=== PATIENT | male | born 1950 | race Caucasian/White ===

== ENCOUNTER 2024-02-26 08:44 | Day surgery (SDC) | payer OTHER ==
[2024-02-15 09:20] LABS: Absolute Eosinophils 0.1 K/uL (0-0.5); Absolute Lymphocytes (CBC) 1.1 K/uL (0.7-4.9); Absolute Monocytes 0.5 K/uL (0.1-1.3); Absolute Neutrophil 3.5 K/uL (1.8-8.0); Basophils % 0.9 % (0-1.3); Eosinophils % 2.7 % (0-4.4); Hematocrit 38.4 % (39.6-49.0); Lymphocytes % 20.7 % (15.3-44.8); MCH 31.6 pg (27.0-35.0); MCHC 33.8 g/dL (32.0-36.0); MCV 93.4 fL (80-100); MPV 7.5 fL (7.6-11.3); Monocytes % 8.9 % (3.3-12.3); Neutrophils % 66.8 % (41.7-73.7); Platelets 335 thou/uL (152-406); RBC Red Blood Cell Count 4.11 M/uL (4.33-5.43); Red Cell Distribution Width 13.4 % (12.1-15.2)
[2024-02-15 09:28] LABS: PT Prothrombin Time 11.2 SECONDS (9.5-12.5); Protime INR 1.02
[2024-02-15 09:41] LABS: Anion Gap 6.9 mEq/L (5.0-15.0); Potassium 3.9 mEq/L (3.5-5.1)
--- NOTE | 2024-02-15 09:57 | RAD REPORT ---
EXAM DESCRIPTION: RAD - Chest Pa And Lat (2 Views) - 02/15/2024 9:11 am CLINICAL HISTORY: pre op for surgery Chest pain. COMPARISON: CHEST SINGLE VIEW dated 10/19/2009 FINDINGS: The lungs are clear. The heart is normal in size. No displaced fractures. Small to moderat e hiatal hernia. IMPRESSION: No acute or concerning finding suspected. Hiatal hernia.
--- NOTE | 2024-02-15 11:49 | EKG ---
Test Date: 2024-02-15 Test Time: 08:59:20 Pulp Grinder Feeder: KERON MEASUREMENT RESULTS: Intervals: Rate: 67 ND: 164 QRSD: 104 QT: 380 QTc: 401 [place]: P: 65 ND: 164 QRS: 29 T: 53 INTERPRETIVE STATEMENTS: Normal sinus rhythm Incomplete right bundle branch block Borderline ECG Compared to ECG 10/19/2009 03:02:02 Incomplete right bundle-branch block now present Electronically Signed On 02-15-24 11:48:21 CDT by Jluis Greenfield
[2024-02-26] MEDS: Ringers Lactate 1,000 ML IV ONE (09:50)
[2024-02-26 10:09] LABS: Sqamous Epithelial None Seen /HPF (None Seen); Urine Bacteria None Seen /HPF (<20); Urine Bilirubin NEGATIVE (Negative); Urine Blood Negative (Negative); Urine Clarity Clear (Clear); Urine Color Light-Yellow (Yellow); Urine Culture Reflex Order NOT NEEDED; Urine Glucose NEGATIVE (Negative); Urine Ketones NEGATIVE (Negative); Urine Microscopic Reflex YN ORDER UMIC; Urine Mucus Slight /HPF (None Seen); Urine Nitrite NEGATIVE (Negative); Urine Protein NEGATIVE (Negative); Urine RBC <5 /HPF (None Seen); Urine Urobilinogen Normal (Normal); Urine WBC <5 /HPF (<5)
[2024-02-26] MEDS ORDERED: LIDOCAINE 1% MPF 5 ML VIAL ONE (10:32)
[2024-02-26] MEDS ORDERED: ONDANSETRON 4 MG/2 ML VIAL ONE (10:32)
[2024-02-26] MEDS ORDERED: propofoL 200 MG/20 ML VIAL IV ONE (10:32)
[2024-02-26] MEDS ORDERED: MIDAZOLAM HCL 2 MG/2 ML INJ ONE (10:33)
[2024-02-26] MEDS ORDERED: FENTANYL CITR 100 MCG/2 ML ONE (10:33)
[2024-02-26] MEDS: CEFAZOLIN SODIUM 1 GM/VIAL ONE (10:37)
[2024-02-26] MEDS ORDERED: GLYCOPYRROLATE 0.2 MG/ML SYR ONE (11:07)
--- NOTE | 2024-02-26 12:27 | RAD REPORT ---
EXAM DESCRIPTION: RAD - Urethrocystogrphy Retrograde - 02/26/2024 12:08 pm CLINICAL HISTORY: ICD N 20.0 FINDINGS: A 20 fluoroscopic spot images obtained. Fluoroscopy time 0.4 minutes The right ureter was cannulated and contrast administered. Subsequently an ureteral stent was placed. Examination was performed by Dr Saha
[2024-02-26 12:40] VITALS: O2SAT 99
[2024-02-26] MEDS ORDERED: PHENAZOPYRIDINE 100MG TAB PO ONE (13:06)
[2024-02-26] MEDS ORDERED: HYDROCODONE/APAP 5/325 MG TAB ONE (13:06)
[2024-02-26] MEDS: PHENAZOPYRIDINE 100MG TAB PO ONE (13:11)
[2024-02-26] MEDS: HYDROCODONE/APAP 5/325 MG TAB PO PRN (13:11)
[2024-02-26 13:23] VITALS: BP 126/81; TEMP 97.7
--- NOTE | 2024-02-26 23:09 | OP ---
Surgeon: PENNY BRYSON Preoperative Diagnoses: 1.Right nephroureterolithiasis. 2.Left nephrolithiasis. Postoperative Diagnoses: 1.Right nephroureterolithiasis. 2.Left nephrolithiasis. 3.Subcoronal hypospadias. 4.Meatal stenosis. 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 Principal Procedures: 1.Meatal dilation using sounds. 2.Cystoscopy. 3.Right retrograde pyelography. 4.Right ureteroscopy with laser lithotripsy and stone basketing. 5.Right ureteral dilation. 6.Right 7-Mauritian ureteral stent placement. Indication For Procedure: Mr. Chung presented to the Urology [facility] with pain associated with a proximal ureteral calculus. He failed to pass the stone over the course of the last few weeks of obs ervation, and while his pain did resolve, no evidence of stone passage occurred. As a result, he pre sents for definitive management of his ureteral calculi as well as potentially the renal calculi. Procedure In Detail: The patient was consented in the preoperative holding area before being transfe rred to the operative suite where general anesthesia was induced. He was given Ancef 1 g IV antimicr obial prophylaxis, and pneumo boots were provided for DVT prophylaxis. He was placed in the lithotom y position, padded and secured to the table appropriately, and his genitalia was prepped with Hib[place] ns before being draped in standard fashion. The case was begun attempting to use the 22-Mauritian rigid cystoscope to traverse his urethra, but there was stenosis of the subcoronal hypospadiac meatus. As a result, urethral sounds were required to dilate the meatus from 18-Mauritian to 24-Mauritian with relati ve ease. I was then able to pass the cystoscope via the meatus and via the urethra into his bladder with relative ease. Upon entry into the bladder, I decompressed it of fluid and urine and surveyed i t briefly. No papillary mucosal lesions were noted, but there was a small stone fragment posteriorly dependent. The bladder was moderately trabeculated. I thus identified the right ureteral orifice, which I cannulated using the tip of a Sensor wire and the 5-Mauritian ureteral access catheter. I then performed a right retrograde pyelography: Using a 70:30 mixture of Omnipaque and saline, contrast was injected via the lumen of the 5-Mauritian ur eteral access catheter and did propagate up the distal and beyond a point of irregularity and obstruc tion in the mid distal ureter before entering the proximal ureter and the renal pelvis and calices, w here there was noted to be mild to moderate pelvocaliectasis. I then advanced the sensor wire via th e 5-Mauritian ureteral access catheter and ultimately coiled it within the upper pole of the kidney. Le aving the wire in place, I removed the 5-Mauritian ureteral access catheter and I passed a dual-lumen ca theter over the wire into the distal ureter until it reached a point of obstruction in the same spot, where there was a transition in the ureter observed on the retrograde pyelogram study in the mid dis cesar ureter at about the body of S1. As a result, I again injected contrast to define this and there was a degree of narrowing and filling defect in that area. Presuming this may have been a radiolucen t calculus, I then passed a Bentson guidewire via the second lumen of the dual-lumen catheter coiling it alongside the safety wire in the upper pole of the kidney and removed the dual-lumen catheter. I then utilized that Bentson guidewire to pass the semi-rigid ureteroscope over the wire into the dist al ureter. Right semi-rigid ureteroscopy: I navigated the ureteroscope using pressurized saline over the Bentso n guidewire up the distal ureter and at about the body of S1 as had previously been observed, I encou ntered a point of stricture narrowing that was somewhat dense. With gentle pressure and the wire in place, using those 2 wires as a bit of a rail road track, I was able to navigate beyond the point of obstruction and into the mid distal ureter where I encountered the first calculus. It had a very shad d appearance consistent with a calcium oxalate monohydrate stone. I thus utilized a 272 nm laser fib er at a power setting of 1 joule and 10 hertz that was eventually increased to 15 hertz to fragment t hat stone. I initially utilized a basket to attempt to grasp the partially fragmented stone pieces a nd deliver them out of the ureter, but they got hung up at the level of the stricture disease at the body of S1. As a result, I had to fragment the stone pieces even further until they were about the s ize of the tip of the laser fiber or smaller. I then navigated the scope beyond this initial burden of stone that had been fragmented into the proximal ureter where I encountered a second ureteral calc ulus. I similarly utilized the laser at similar power settings to fragment that stone into dust arou nd the size of the tip of the laser fiber. At this point, since semi-rigid ureteroscopy had been per formed, I then removed the semi-rigid ureteroscope after placing a Bentson guidewire under direct vis ion into the collecting system. I then again attempted to pass the dual-lumen catheter over the Bent son guidewire, but it again got hung up at the level of the previously observed stricture at the body of S1. Attempts to pass the flexible ureteroscope beyond this point of obstruction were similarly t hwarted. As a result, leaving the Bentson guidewire in place with a Sensor wire as a safety wire, I utilized a n 8/10 dilator to dilate the area of stricture disease. Once I was successfully able to pass the dil ator all the way into the proximal ureter just distal to the UPJ, I then utilized the dual-lumen cath eter with a maximum diameter of 12-Mauritian to pass beyond the point of stricture all the way into the proximal ureter. At this point, with the stricture dilated, I then back-loaded the cystoscope over t he indwelling Sensor wire and passed a 7-Mauritian x 26 cm double-J ureteral stent with a coil observed fluoroscopically in his renal pelvis and 1 cystoscopically formed in his bladder. I then decompresse d his bladder of fluid, urine, and a few small blood clots. The scope was then removed, he was taken out of the lithotomy position, awakened from general anesthesia, and then he was transferred to the recovery room in good condition after being transferred to a stretcher. Complications: None. Discharge Disposition: Given the findings of a mid distal ureteral stricture at the body of S1 on th e right, likely from the prior stone impaction in that location, that was dilated today and I will le ave the 7-Mauritian stent over the course of the next few weeks to hopefully stabilize that stricture di sease and prevent future recurrence. He would certainly benefit from repeat operative ureteroscopy w ith laser lithotripsy of the more than 5 or 6 additional small to moderate-sized calculi present with in his right kidney. Subsequent management of the left side may be considered via ESWL in the absenc e of obstruction. Additionally, given his recurrent stone formation, he will require definitive metabolic stone profile assessment down the line. HOMA/SHABANA Voice ID: [id number] Report ID: [id number]
== END 2024-02-26 14:25 | disposition home or self-care (01) ==
LOC: OR 08:44
PROVIDERS: ATTEND Urology
PROC: 0T768DZ Dilation of Right Ureter with Intraluminal Device, Via Natural or Artificial Opening Endoscopic (ICD-10-PCS; 2024-02-26)
PROC: 0TC68ZZ Extirpation of Matter from Right Ureter, Via Natural or Artificial Opening Endoscopic (ICD-10-PCS; principal; 2024-02-26 10:15)
DX: N20.2 Calculus of kidney with calculus of ureter (principal); R10.9 Unspecified abdominal pain; N40.1 Benign prostatic hyperplasia with lower urinary tract symptoms; N13.8 Other obstructive and reflux uropathy; Q54.8 Other hypospadias; N13.5 Crossing vessel and stricture of ureter without hydronephrosis; N35.911 Unspecified urethral stricture, male, meatal
CPT/HCPCS: 93005; 85025; 81001; 87086; 80048; 36415; 85610; 71046; 74450; 51610; 52356; J2704; J2001; J3010; J2405; J7120; J0690; 87088; J2250

== ENCOUNTER 2024-03-08 04:29 | Emergency (ER) | payer OTHER ==
--- OUTSIDE RECORDS SUMMARY | 2024-03-08 04:32 | XMS REPORT | Continuity of Care Document ---
Author Name Unknown Address [address] [place] [address] [facility] thconnect Address [address] [place] [address] Care Team Providers Care Energy Risk Management Analyst Name Role Phone Carissa Kim Attending Clinician Unavailable Raju_P Attending Clinician Unavailable Raju_P Admitting Clinician Unavailable Payers Payer Name Policy Type Policy Number Effective Date Expirati on Date Source [id number] [id number] Problems Condition Name Condition Details Condition Category Status Onset Date Resolution Date Last Treatment Date Treating Clinician Comments Source [id number] Encounter for prostate cancer screening Problem [facility] [id number] Other obstructiv e and reflux uropathy Problem [facility] [id number] Right flank pain Problem [facility] [id number] Benign prostatic hyperplasi a with lower urinary tract symptoms Problem [facility] [id number] Ureterolit hiasis Problem [facility] [id number] Sciatica of right side Problem [facility] [id number] Mixed hyperlipid emia [facility] Hypercalce stefanie Hypercalce stefanie Problem [facility] [id number] Spondylosi s of lumbosacra l region, unspecifie d spinal osteoarthr itis complicati on status Problem [facility] [id number] Gastroesop hageal reflux disease, esophagiti s presence not specified Problem [facility] [id number] Hearing aid worn Problem [facility] [id number] 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 Problem [facility] [id number] Acute cystitis with hematuria Problem [facility] [id number] Hearing loss, unspecifie d hearing loss type, unspecifie d laterality Problem [facility] [id number] Benign prostatic hyperplasi a without lower urinary tract symptoms Problem [facility] Lesion of liver Liver lesion Problem [facility] Kidney stone Bilateral nephrolith iasis Problem [facility] Hiatal hernia Hiatal hernia Problem [facility] Allergies, Adverse Reactions, Alerts Allergy Name Allergy Type Status Severity Reaction(s) Onset Date Inactive Date Treating Clinician Comments Source 0 Drug allergy Active Myalgia [facility] Social History Social Habit Start Date Stop Date Quantity Comments Source History of Tobacco Use [facility] Sex Assigned At [facility] Smoking Status Start Date Stop Date Source Never Smoker [facility] Medications Ordered Medication Name Filled Medication Name Start Date Stop Date Current Medication? Ordering Clinician Indication Dosage Frequency Signature (SIG) Comments Components Source Flomax 0.4 MG Flomax 0.4 MG 4-0 02-12 00:00: 00 No 1{capsu le_at_b edtime} QD Flomax 0.4 MG Flomax 0.4 MG Flomax 0.4 MG 4-0 02-12 00:00: 00 No 1{capsu le_at_b edtime} QD Flomax 0.4 MG Amoxicillin -Pot Clavulanate 875-125 MG Amoxicillin -Pot Clavulanate 875-125 MG 4-0 02-07 00:00: 00 No 1{table t} BID Amoxicilli n-Pot Clavulanat e 875-125 MG Amoxicillin -Pot Clavulanate 875-125 MG Amoxicillin -Pot Clavulanate 875-125 MG 4-0 02-07 00:00: 00 No 1{table t} BID Amoxicilli n-Pot Clavulanat e 875-125 MG Amoxicillin -Pot Clavulanate 875-125 MG Amoxicillin -Pot Clavulanate 875-125 MG 4-0 322 00:00: 00 No 1{table t} BID Amoxicilli n-Pot Clavulanat e 875-125 MG Tamsulosin HCl 0.4 MG Tamsulosin HCl 0.4 MG 4-0 314 00:00: 00 No 1{capsu le} QD Tamsulosin HCl 0.4 MG Tamsulosin HCl 0.4 MG Tamsulosin HCl 0.4 MG 4-0 14 00:00: 00 No 1{capsu le} QD Tamsulosin HCl 0.4 MG Ciprofloxac in HCl 500 MG Ciprofloxac in HCl 500 MG 4-0 314 00:00: 00 No 1{table t} BID Ciprofloxa liss HCl 500 MG Tamsulosin HCl 0.4 MG Tamsulosin HCl 0.4 MG 4-0 14 00:00: 00 No 1{capsu le} QD Tamsulosin HCl 0.4 MG Ciprofloxac in HCl 500 MG Ciprofloxac in HCl 500 MG 4-0 314 00:00: 00 No 1{table t} BID Ciprofloxa liss HCl 500 MG Tamsulosin HCl 0.4 MG Tamsulosin HCl 0.4 MG 4-0 14 00:00: 00 No 1{capsu le} QD Tamsulosin HCl 0.4 MG Ciprofloxac in HCl 500 MG Ciprofloxac in HCl 500 MG 4-0 14 00:00: 00 No 1{table t} BID Ciprofloxa liss HCl 500 MG Tamsulosin HCl 0.4 MG Tamsulosin HCl 0.4 MG 4-0 14 00:00: 00 No 1{capsu le} QD Tamsulosin HCl 0.4 MG Ciprofloxac in HCl 500 MG Ciprofloxac in HCl 500 MG 4-0 14 00:00: 00 No 1{table t} BID Ciprofloxa liss HCl 500 MG Tamsulosin HCl 0.4 MG Tamsulosin HCl 0.4 MG 4-0 3-14 00:00: 00 No 1{vincenzou le} QD Tamsulosin HCl 0.4 MG Multi For Him 50+ - Multi For Him 50+ - No Multi For Him 50+ - Multi For Him 50+ - Multi For Him 50+ - No Multi For Him 50+ - Omeprazole 20 MG Omeprazole 20 MG No QD Omeprazole 20 MG Saw [place] Saw [place] No Saw [place] Multi For Him 50+ - Multi For Him 50+ - No Multi For Him 50+ - Omeprazole 20 MG Omeprazole 20 MG No QD Omeprazole 20 MG Probiotic Probiotic No Probiotic Omeprazole 20 MG Omeprazole 20 MG No QD Omeprazole 20 MG Multi For Him 50+ - Multi For Him 50+ - No Multi For Him 50+ - Probiotic Probiotic No Probiotic Omeprazole 20 MG Omeprazole 20 MG No QD Omeprazole 20 MG Multi For Him 50+ - Multi For Him 50+ - No Multi For Him 50+ - Probiotic Probiotic No Probiotic Omeprazole 20 MG Omeprazole 20 MG No QD Omeprazole 20 MG Multi For Him 50+ - Multi For Him 50+ - No Multi For Him 50+ - Probiotic Probiotic No Probiotic Probiotic Probiotic No Probiotic Omeprazole 20 MG Omeprazole 20 MG No QD Omeprazole 20 MG Multi For Him 50+ - Multi For Him 50+ - No Multi For Him 50+ - Probiotic Probiotic No Probiotic Omeprazole 20 MG Omeprazole 20 MG No QD Omeprazole 20 MG Multi For Him 50+ - Multi For Him 50+ - No Multi For Him 50+ - Probiotic Probiotic No Probiotic Omeprazole 20 MG Omeprazole 20 MG No QD Omeprazole 20 MG Multi For Him 50+ - Multi For Him 50+ - No Multi For Him 50+ - Probiotic Probiotic No Probiotic Omeprazole 20 MG Omeprazole 20 MG No QD Omeprazole 20 MG Vital Signs Vital Name Observation Time Observation Value Comments S ource height 2024-02-13 13:30:00 62 [in_i] Commo n [facility] weight 2024-02-13 13:30:00 138.6 [lb_av] Co mmon [facility] temperature 2024-02-13 13:30:00 97.6 [degF] Com mon [facility] bmi 2024-02-13 13:30:00 25.35 kg/m2 Comm on [facility] oximetry 2024-02-13 13:30:00 99 % Commo n [facility] respiratory rate 2024-02-13 13:30:00 18 /min Common [facility] blood pressure systolic 2024-02-13 13:30:00 120 mm[Hg] [facility] pressure diastolic 2024-02-13 13:30:00 68 mm[Hg] Common [facility] bmi 2024-01-31 15:00:00 24.91 kg/m2 Comm on [facility] oximetry 2024-01-31 15:00:00 95 % Commo n [facility] respiratory rate 2024-01-31 15:00:00 15 /min [facility] blood pressure systolic 2024-01-31 15:00:00 129 mm[Hg] [facility] blood pressure diastolic 2024-01-31 15:00:00 74 mm[Hg] [facility] height 2024-01-31 15:00:00 62 [in_i] Commo n [facility] weight 2024-01-31 15:00:00 136.2 [lb_av] Co [facility] temperature 2024-01-31 15:00:00 98.2 [degF] Com [facility] height 2023-03-21 10:20:00 62 [in_i] Commo n [facility] weight 2023-03-21 10:20:00 139.6 [lb_av] Co on [facility] temperature 2023-03-21 10:20:00 97.4 [degF] Com [facility] bmi 2023-03-21 10:20:00 25.53 kg/m2 Comm on [facility] oximetry 2023-03-21 10:20:00 95 % Commo n [facility] respiratory rate 2023-03-21 10:20:00 16 /min Common [facility] blood pressure systolic 2023-03-21 10:20:00 113 mm[Hg] [facility] blood pressure diastolic 2023-03-21 10:20:00 74 mm[Hg[facility] Procedures Procedure Date / Time Performed Performing Clinicia n Source PVR 2024-02-13 00:00:00 [facility]irit [facility] Encounters Start Date/Time End Date/Time Encounter Type Admission Type Attending Clinicians Care Facility Care Department Encounter ID Source 2023-03-21 10:03:02 Outpatient Carissa Kim [facility] ST[facility] [id number] [facility] 2024-02-19 00:00:00 2024-02-19 00:00:00 (TEL) [facility] [id number] [facility] 2024-02-13 00:00:00 2024-02-13 00:00:00 OFFICE VISIT NEW PT LEVEL 4 [facility] [id number] [facility] 2024-02-07 00:00:00 2024-02-07 00:00:00 (TEL) [facility] [id number] [facility] 2024-02-05 00:00:00 2024-02-05 00:00:00 (TEL) [facility]C [facility] [id number] [facility] 2024-01-31 00:00:00 2024-01-31 00:00:00 OFFICE VISIT ESTAB PT LEVEL 3 [facility] [id number] [facility] 2023-04-24 00:00:00 2023-04-24 00:00:00 (TEL) [facility]C [facility] [id number] [facility] 2023-04-09 00:00:00 2023-04-09 00:00:00 (TEL) [facility]C [facility] [id number] [facility] 2023-03-21 00:00:00 2023-03-21 00:00:00 SUB ANNUAL [facility] VISIT [facility] [id number] [facility] 2020-09-22 12:00:00 2020-09-22 12:00:00 [id number] [facility] 2020-06-25 03:33:00 2020-06-25 03:33:00 Outpatient Raju_P MMG MMG [id number] [facility] Results Test Description Test Time Test Comments Results Result Co mments Source LIPID [id number] 00:00:00* Test Item Value Reference Range Interpretation Comme nts CALC LDL CHOL (test code = 81855-0) 159 MG/DL See_Comment H [Automated messa ge] The system which generated this result transmitted reference range: <100 MG/DL. The reference range was not used to interpret this result as normal/abnormal. CHOLESTEROL (test code = 2093-3) 236 MG/DL See_Comment H [Automated messa ge] The system which generated this result transmitted reference range: <200 MG/DL. The reference range was not used to interpret this result as normal/abnormal. HDL CHOLESTEROL (test code = 2085-9) 58 MG/DL See_Comment [Automated messa ge] The system which generated this result transmitted reference range: >39 MG/DL. The reference range was not used to interpret this result as normal/abnormal. RISK RATIO LDL/HDL (test code = 84302-4) 2.74 RATIO See_Comment [Automated message] The system which generated this result transmitted reference range: <3.55 RATIO. The reference range was not used to interpret this result as normal/abnormal. TRIGLYCERIDES (test code = 2571-8) 87 MG/DL See_Comment [Automated messa ge] The system which generated this result transmitted reference range: <150 MG/DL. The reference range was not used to interpret this result as normal/abnormal. COMPREHENSIVE METABOLIC [id number] 00:00:00* Test Item Value Reference Range Interpretation Comme nts ALBUMIN (test code = 1751-7) 4.6 G/DL See_Comment [Automated messa ge] The system which generated this result transmitted reference range: 3.5-5.2 G/DL. The reference range was not used to interpret this result as normal/abnormal. ALKALINE PHOSPHATASE (test code = 6768-6) 103 U/L See_Comment [Automated message] The system which generated this result transmitted reference range: 40-125 U/L. The reference range was not used to interpret this result as normal/abnormal. BILIRUBIN, TOTAL (test code = 1975-2) 0.7 MG/DL See_Comment [Automated message] The system which generated this result transmitted reference range: <=1.2 MG/DL. The reference range was not used to interpret this result as normal/abnormal. BUN (test code = 3094-0) 17 MG/DL See_Comment [Automated messa ge] The system which generated this result transmitted reference range: 8-23 MG/DL. The reference range was not used to interpret this result as normal/abnormal. CALCIUM (test code = 69893-3) 11.6 MG/DL See_Comment H [Automated messa ge] The system which generated this result transmitted reference range: 8.5-10.5 MG/DL. The reference range was not used to interpret this result as normal/abnormal. CALC A/G RATIO (test code = 1759-0) 2.3 RATIO See_Comment [Automated messa ge] The system which generated this result transmitted reference range: 1.0-2.6 RATIO. The reference range was not used to interpret this result as normal/abnormal. CALC BUN/CREAT (test code = 3097-3) 18 RATIO See_Comment [Automated messa ge] The system which generated this result transmitted reference range: 6-28 RATIO. The reference range was not used to interpret this result as normal/abnormal. CALC GLOBULIN (test code = 99388-8) 2.0 G/DL See_Comment [Automated messa ge] The system which generated this result transmitted reference range: 1.9-3.7 G/DL. The reference range was not used to interpret this result as normal/abnormal. CARBON DIOXIDE (test code = 1963-8) 27 MEQ/L See_Comment [Automated messa ge] The system which generated this result transmitted reference range: 19-31 MEQ/L. The reference range was not used to interpret this result as normal/abnormal. CHLORIDE (test code = 2075-0) 105 MEQ/L See_Comment [Automated messa ge] The system which generated this result transmitted reference range: 95-107 MEQ/L. The reference range was not used to interpret this result as normal/abnormal. CREATININE (test code = 2160-0) 0.94 MG/DL See_Comment [Automated messa ge] The system which generated this result transmitted reference range: 0.80-1.40 MG/DL. The reference range was not used to interpret this result as normal/abnormal. eGFR (2020 CKD-EPI) (test code = 77599-7) 87 ML/MIN/1.73 See_Comment [Automated messa ge] The system which generated this result transmitted reference range: >60 ML/MIN/1.73. The reference range was not used to interpret this result as normal/abnormal. GLUCOSE (test code = 1558-6) 94 MG/DL See_Comment [Automated messa ge] The system which generated this result transmitted reference range: 70-99 MG/DL. The reference range was not used to interpret this result as normal/abnormal. POTASSIUM (test code = 2823-3) 4.7 MEQ/L See_Comment [Automated messa ge] The system which generated this result transmitted reference range: 3.5-5.4 MEQ/L. The reference range was not used to interpret this result as normal/abnormal. PROTEIN, TOTAL (test code = 2885-2) 6.6 G/DL See_Comment [Automated messa ge] The system which generated this result transmitted reference range: 6.1-8.3 G/DL. The reference range was not used to interpret this result as normal/abnormal. AST (test code = 1920-8) 34 U/L See_Comment [Automated messa ge] The system which generated this result transmitted reference range: 9-50 U/L. The reference range was not used to interpret this result as normal/abnormal. ALT (test code = 1742-6) 38 U/L See_Comment [Automated messa ge] The system which generated this result transmitted reference range: 5-50 U/L. The reference range was not used to interpret this result as normal/abnormal. SODIUM (test code = 2951-2) 144 MEQ/L See_Comment [Automated messa ge] The system which generated this result transmitted reference range: 133-146 MEQ/L. The reference range was not used to interpret this result as normal/abnormal.
--- NOTE | 2024-03-08 05:20 | EDPHYS ---
Physician Documentation [facility] Name: Zion Chung Age: 73 yrs Sex: Male : 1950 Arrival Date: 03/08/2024 Time: 04:29 Bed 18 Private MD: ED Physician Yohan Méndez HPI: 03/08 04:55 This 73 yrs old Male presents to ER via Unassigned with complaints of Post ec2 Surgical Pain, Urinary Retention. 04:55 Patient arrives today for concern for urinary retention. Patient has an indwelling ec2 Jose catheter that was removed approximately 24 hours ago. Patient states that he had issues with urinary retention. Patient reports some suprapubic discomfort as he has not been able to urinate. No fevers or chills, no nausea or vomiting. Follows with Dr. Saha, is on ciprofloxacin as well as Flomax.. Historical: - Allergies: 05:10 No Known Allergies; bm8 - Home Meds: 05:10 omeprazole Oral [Active]; Flomax 0.4 mg Oral capsule 1 cap daily [Active]; Cipro Oral bm8 [Active]; - PSHx: 05:10 Unable to Obtain; bm8 - Immunization history:: Adult Immunizations up to date. - Infectious Disease History:: Denies. - Social history:: Smoking status: Patient denies any tobacco usage or history of. ROS: 04:55 Constitutional: as per hpi ec2 Exam: 04:55 Constitutional: GEN: NAD Head: atraumatic Eyes: EOMI Ears: External ears are ec2 normal. CV: regular rate LUNGS: no respiratory distress ABD: non-distended, soft, minimally tender in the suprapubic region, no guarding, not rigid. SKIN: no evidence of rashes MSK: no evidence of trauma NEURO: moves all extremities equally Vital Signs: 04:29 BP 134 / 80; Pulse 102; Resp 19; Temp 99.3; Pulse Ox 96% ; Weight 68.04 kg; Height 5 bm8 ft. 6 in. ; Pain 8/10; 05:16 BP 118 / 69; Pulse 95; Resp 20; Temp 99.3; Pulse Ox 99% ; Pain 0/10; bm8 05:19 Pulse 98; ec2 04:29 Body Mass Index 24.21 (68.04 kg, 167.64 cm) bm8 04:29 Pain Scale: Adult bm8 05:16 Pain Scale: Adult bm8 [place] Coma Score: 05:13 Eye Response: spontaneous(4). Motor Response: obeys commands(6). Verbal Response: bm8 oriented(5). Total: 15. MDM: 04:45 Patient medically screened. ec2 04:55 Data reviewed: vital signs. ED course: Patient arrives today for evaluation of ec2 inability to urinate. Examination remarkable for well-appearing nontoxic dividual is otherwise in no acute distress with a reassuring examination. Will replace the patient's Jose catheter to help with this is retention. Ultimately will discharge him with this. Suspect this is likely secondary to the recent Jose catheter removal. Additionally considered other process such as UTI however patient is currently in antibiotics.. 05:18 ED course: Patient already on ciprofloxacin however states this is his last day, will ec2 add on additional several day course given the reinstrumentation. Will have patient follow-up with Dr. Saha. Return precautions given.. 03/08 05:32 Order name: Urine Culture ec2 03/08 04:55 Order name: Jose Leg Bag; Complete Time: 05:16 ec2 Administered Medications: No medications were administered Disposition Summary: 03/08/24 05:19 Discharge Ordered Notes: Location: Home ec2 Condition: Stable ec2 Diagnosis - Retention of urine, unspecified ec2 Followup: ec2 - With: Chaitanya Saha MD - When: - Reason: Recheck today's complaints Discharge Instructions: - Discharge Summary Sheet ec2 - Acute Urinary Retention, Male ec2 Forms: - Medication Reconciliation Form ec2 - Thank You Letter ec2 - Antibiotic Education ec2 - Prescription Opioid Use ec2 - Patient Portal Instructions ec2 - Leadership Thank You Letter ec2 Prescriptions: - Cipro 500 mg Oral Tablet - take 1 tablet ORAL route every 12 hours for 7 days; 14 tablet; Refills: 0, ec2 Product Selection Permitted Signatures: Dispatcher [employer] EDYohan Matta MD MD ec2 Ramiro Mendez RN RN bm8 Corrections: (The following items were deleted from the chart) 05:02 05:02 Patient medically screened. ec2 ec2 05:33 05:33 Urine Culture+BA.LAB.BRZ ordered. EDMS EDMS
--- NOTE | 2024-03-08 05:20 | ER ---
Nurse's Notes [facility] Name: Zion Chung Age: 73 yrs Sex: Male : 1950 Arrival Date: 03/08/2024 Time: 04:29 Bed 18 Private MD: Diagnosis: Retention of urine, unspecified Presentation: 03/08 04:29 Chief complaint: Patient states: I have been unable to pee since 829 morning. I bm8 just had it taken out this morning and have not been able to urinate since. Coronavirus screen: At this time, the client does not indicate any symptoms associated with coronavirus-19. Ebola Screen: Patient negative for fever greater than or equal to 101.5 degrees Fahrenheit, and additional compatible Ebola Virus Disease symptoms Patient denies exposure to infectious person. Patient denies travel to an Ebola-affected area in the 21 days before illness onset. No symptoms or risks identified at this time. 04:29 Method Of Arrival: Ambulatory bm8 04:29 Initial Sepsis Screen: Does the patient meet any 2 criteria? No. Patient's initial bm8 sepsis screen is negative. Does the patient have a suspected source of infection? No. Patient's initial sepsis screen is negative. Risk Assessment: Do you want to hurt yourself or someone else? Patient reports no desire to harm self or others. Onset of symptoms was March 07, 2024 at 08:30. 04:29 Acuity: [place] 3 bm8 Triage Assessment: 04:29 General: Appears distressed, uncomfortable, Behavior is calm, cooperative, appropriate bm8 for age. Pain: Complains of pain in suprapubic area Pain currently is 8 out of 10 on a pain scale. Quality of pain is described as aching. EENT: No deficits noted. No signs and/or symptoms were reported regarding the EENT system. Neuro: Level of Consciousness is awake, alert, obeys commands, Oriented to person, place, time, situation, Appropriate for age. Cardiovascular: Capillary refill < 3 seconds Patient's skin is warm and dry. Respiratory: Airway is patent Respiratory effort is even, unlabored, Respiratory pattern is regular, symmetrical. 04:29 GI: No deficits noted. No signs and/or symptoms were reported involving the bm8 gastrointestinal system. : Urine is cloudy, Reports inability to void, since 829 morning. Historical: - Allergies: 05:10 No Known Allergies; bm8 - Home Meds: 05:10 omeprazole Oral [Active]; Flomax 0.4 mg Oral capsule 1 cap daily [Active]; Cipro Oral bm8 [Active]; - PSHx: 05:10 Unable to Obtain; bm8 - Immunization history:: Adult Immunizations up to date. - Infectious Disease History:: Denies. - Social history:: Smoking status: Patient denies any tobacco usage or history of. Screenin:13 [facility] ED Fall Risk Assessment (Adult) History of falling in the last 3 months, bm8 including since admission No falls in past 3 months (0 pts) Confusion or Disorientation No (0 pts) Intoxicated or Sedated No (0 pts) Impaired Gait No (0 pts) Mobility Assist Device Used No (0 pt) Altered Elimination Yes (1 pt) Score/Fall Risk Level 0 - 2 = Low Risk Oriented to surroundings, Maintained a safe environment, Educated pt \T\ family on fall prevention, incl call for assistance when getting out of bed. Abuse screen: Denies threats or abuse. Nutritional screening: No deficits noted. Tuberculosis screening: No symptoms or risk factors identified. Assessment: 05:13 Reassessment: see triage assessment. bm8 05:16 Reassessment: Patient appears in no apparent distress at this time. Patient and/or bm8 family updated on plan of care and expected duration. Pain level reassessed. Patient is alert, oriented x 3, equal unlabored respirations, skin warm/dry/pink. Patient denies pain at this time. Patient states feeling better. Patient states symptoms have improved. : Reports after cath placement pt feels much better and denies pain. Vital Signs: 04:29 BP 134 / 80; Pulse 102; Resp 19; Temp 99.3; Pulse Ox 96% ; Weight 68.04 kg; Height 5 bm8 ft. 6 in. ; Pain 8/10; 05:16 BP 118 / 69; Pulse 95; Resp 20; Temp 99.3; Pulse Ox 99% ; Pain 0/10; bm8 05:19 Pulse 98; ec2 04:29 Body Mass Index 24.21 (68.04 kg, 167.64 cm) bm8 04:29 Pain Scale: Adult bm8 05:16 Pain Scale: Adult bm8 [place] Coma Score: 05:13 Eye Response: spontaneous(4). Motor Response: obeys commands(6). Verbal Response: bm8 oriented(5). Total: 15. ED Course: 04:29 Arm band placed on right wrist. bm8 04:31 Patient arrived in ED. [id number] 04:34 Yohna Méndez MD is Attending Physician. ec2 05:07 Ramiro Mendez RN is Primary Nurse. bm8 05:10 Triage completed. bm8 05:13 Patient has correct armband on for positive identification. Placed in gown. Bed in low bm8 position. Call light in reach. Side rails up X 1. Adult w/ patient. Pulse ox on. NIBP on. Door closed. Noise minimized. Verbal reassurance given. 05:13 No provider procedures requiring assistance completed. Jose cath inserted, using bm8 sterile technique, 18 Fr., by wi, balloon inflated, to gravity drainage, urine specimen collected. Patient tolerated well. 05:16 Provided Education on: post ER care. bm8 05:19 Chaitanya Saha MD is Referral Physician. ec2 05:38 Yohan Méndez MD is Attending Physician. bm8 05:38 Patient did not have IV access during this emergency room visit. bm8 Administered Medications: No medications were administered Medication: 05:13 VIS not applicable for this client. bm8 Output: 05:16 Urine: 1000ml (Jose); Total: 1000ml. bm8 Outcome: 05:19 Discharge ordered by . ec2 05:37 Discharged to home ambulatory, bm8 05:37 Condition: stable 05:37 Discharge instructions given to patient, family, Instructed on discharge instructions, follow up and referral plans. medication usage, safety practices, Demonstrated understanding of instructions, follow-up care, medications, Prescriptions given X 1, 05:38 Patient left the ED. bm8 Addendum: 03/09/2024 14:35 Addendum: Culture Results: Positive blood culture. gram negative rods in aerobic i w bottles Bacteria is resistant to, has intermediate sensitivity, or is not tested against prescribed antibiotics. Report given to HENNY for further evaluation and then to burrito maker for follow up with patient. Signatures: Antoinette Bird RN RN iw Jeffries, Jennifer jj6 Yohan Méndez MD MD 2 Mendez, Ramiro, RN RN bm8
[2024-03-08 05:50] VITALS: BP 118/69; TEMP 99.3; O2SAT 99
== END 2024-03-08 05:38 | disposition home or self-care (01) ==
LOC: ER 04:29
DX: R33.9 Retention of urine, unspecified (principal)
CPT/HCPCS: 51702; 87077; 87086; 87088; 87186; 99284

== ENCOUNTER 2024-03-08 20:02 | Emergency (ER) | payer OTHER ==
--- OUTSIDE RECORDS SUMMARY | 2024-03-08 20:04 | XMS REPORT | Continuity of Care Document ---
Author Name Unknown Address [address] [place] [address] [facility] thconnect Address [address] [place] [address] Care Team Providers Care Beer Merchant Name Role Phone Carissa Kim Attending Clinician Unavailable Raju_P Attending Clinician Unavailable Raju_P Admitting Clinician Unavailable Payers Payer Name Policy Type Policy Number Effective Date Expirati on Date Source [facility] [id number] [facility] [id number] Problems Condition Name Condition Details Condition Category Status Onset Date Resolution Date Last Treatment Date Treating Clinician Comments Source [id number] Encounter for prostate cancer screening Problem [facility] [id number] Other obstructiv e and reflux uropathy Problem [facility] [id number] Right flank pain Problem [facility] [id number] Benign prostatic hyperplasi a with lower urinary tract symptoms Problem [facility] [id number] Ureterolit hiasis Problem [facility] [id number] Sciatica of right side Problem [facility] [id number] Mixed hyperlipid emia Problem [facility] Hypercalce stefanie Hypercalce stefanie Problem [facility] [id number] Spondylosi s of lumbosacra l region, unspecifie d spinal osteoarthr itis complicati on status Problem [facility] [id number] Gastroesop hageal reflux disease, esophagiti s presence not specified Problem [facility] [id number] Hearing aid worn Problem [facility] [id number] 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 Problem [facility] [id number] Acute cystitis with hematuria Problem [facility] [id number] Hearing loss, unspecifie d hearing loss type, unspecifie d laterality Problem [facility] [id number] Benign prostatic hyperplasi a without lower urinary tract symptoms Problem [facility] Lesion of liver Liver lesion Problem [facility] Kidney stone Bilateral nephrolith iasis Problem [facility] Hiatal hernia Hiatal hernia Problem [facility] Allergies, Adverse Reactions, Alerts Allergy Name Allergy Type Status Severity Reaction(s) Onset Date Inactive Date Treating Clinician Comments Source 0 Drug allergy Active Myalgia [facility] Social History Social Habit Start Date Stop Date Quantity Comments Source History of Tobacco Use [facility] Sex Assigned At [facility] Smoking Status Start Date Stop Date Source Never Smoker [facility] Medications Ordered Medication Name Filled Medication Name [...] MG No QD Omeprazole 20 MG Saw [place] Saw [place] No Saw [place] Multi For Him 50+ - Multi For [...] height 2024-02-13 13:30:00 62 [in_i] Commo n [facility] weight 2024-02-13 13:30:00 138.6 [lb_av] Co mmon [facility] temperature 2024-02-13 13:30:00 97.6 [degF] Com mon [facility] bmi 2024-02-13 13:30:00 25.35 kg/m2 Comm on [facility] oximetry 2024-02-13 13:30:00 99 % Commo n [facility] respiratory rate 2024-02-13 13:30:00 18 /min Common [facility] blood pressure systolic 2024-02-13 13:30:00 120 mm[Hg] [facility] blood pressure diastolic 2024-02-13 13:30:00 68 mm[Hg] Common [facility] bmi 2024-01-31 15:00:00 24.91 kg/m2 Comm on [facility] oximetry 2024-01-31 15:00:00 95 % Commo n [facility] respiratory rate 2024-01-31 15:00:00 15 /min [facility] blood pressure systolic 2024-01-31 15:00:00 129 mm[Hg] [facility] blood pressure diastolic 2024-01-31 15:00:00 74 mm[Hg] [facility] height 2024-01-31 15:00:00 62 [in_i] Commo n [facility] weight 2024-01-31 15:00:00 136.2 [lb_av] Co [facility] temperature 2024-01-31 15:00:00 98.2 [degF] Com [facility] height 2023-03-21 10:20:00 62 [in_i] Commo n [facility] weight 2023-03-21 10:20:00 139.6 [lb_av] Co on [facility] temperature 2023-03-21 10:20:00 97.4 [degF] Com [facility] bmi 2023-03-21 10:20:00 25.53 kg/m2 Comm on [facility] oximetry 2023-03-21 10:20:00 95 % Commo n [facility] respiratory rate 2023-03-21 10:20:00 16 /min Common [facility] blood pressure systolic 2023-03-21 10:20:00 113 mm[Hg] [facility] blood pressure diastolic 2023-03-21 10:20:00 74 mm[Hg] [facility] Procedures Procedure Date / Time Performed Performing Clinicia n Source PVR 2024-02-13 00:00:00 [facility] Encounters Start Date/Time End Date/Time Encounter Type Admission Type Attending Clinicians Care Facility Care Department Encounter ID Source 2023-03-21 10:03:02 Outpatient Carissa Kim STLMLC STLMLC [id number] [facility] 2024-02-19 00:00:00 2024-02-19 00:00:00 (TEL) STLMLC STLMLC [id number] [facility] 2024-02-13 00:00:00 2024-02-13 00:00:00 OFFICE VISIT NEW PT LEVEL 4 STLMLC STLMLC [id number] [facility] 2024-02-07 00:00:00 2024-02-07 00:00:00 (TEL) STLMLC STLMLC [id number] [facility] 2024-02-05 00:00:00 2024-02-05 00:00:00 (TEL) STLMLC STLMLC [id number] [facility] 2024-01-31 00:00:00 2024-01-31 00:00:00 OFFICE VISIT ESTAB PT LEVEL 3 STLMLC STLMLC [id number] [facility] 2023-04-24 00:00:00 2023-04-24 00:00:00 (TEL) STLMLC STLMLC [id number] [facility] 2023-04-09 00:00:00 2023-04-09 00:00:00 (TEL) STLMLC STLMLC [id number] [facility] 2023-03-21 00:00:00 2023-03-21 00:00:00 SUB ANNUAL [facility] VISIT STLMLC STLMLC [id number] [facility] 2020-09-22 12:00:00 2020-09-22 12:00:00 [place] [id number] [facility] 2020-06-25 03:33:00 2020-06-25 03:33:00 Outpatient Raju_P MMG MMG [id number] [facility] Results Test Description Test Time Test Comments Results Result Co mments Source LIPID [id number] 00:00:00* Test Item Value Reference Range Interpretation Comme nts CALC LDL CHOL (test code = 79104-3) 159 MG/DL See_Comment H [Automated messa ge] [...] normal/abnormal. RISK RATIO LDL/HDL (test code = 42322-0) 2.74 RATIO See_Comment [Automated message] The system [...] interpret this result as normal/abnormal. COMPREHENSIVE METABOLIC [id number] 00:00:00* Test Item Value Reference Range Interpretation [...] result as normal/abnormal. CALCIUM (test code = 03754-4) 11.6 MG/DL See_Comment H [Automated messa ge] [...] as normal/abnormal. CALC GLOBULIN (test code = 15138-9) 2.0 G/DL See_Comment [Automated messa ge] The [...] normal/abnormal. eGFR (2020 CKD-EPI) (test code = 58908-5) 87 ML/MIN/1.73 See_Comment [Automated messa ge] The [...]
[2024-03-08] MEDS ORDERED: VANCOMYCIN 1 GM/VIAL ONE (20:57)
[2024-03-08] MEDS ORDERED: PIPERACIL/TAZO 3.375 GM VIAL IV ONE (20:58)
[2024-03-08] MEDS ORDERED: NA CHLORIDE 0.9% 100 ML ONE (20:58)
[2024-03-08] MEDS ORDERED: NA CHLORIDE 0.9% 250 ML ONE (20:58)
[2024-03-08] MEDS ORDERED: NA CHLORIDE 0.9% 2,000 ML ONE (20:59)
[2024-03-08] MEDS ORDERED: ALBUMIN HUMAN 25% 100 ML IV ONE (20:59)
[2024-03-08 21:02] LABS: Absolute Basophils 0.1 K/uL (0-0.5); Absolute Lymphocytes (CBC) 0.3 K/uL (0.7-4.9); Absolute Monocytes 1.6 K/uL (0.1-1.3); Absolute Neutrophil 17.7 K/uL (1.8-8.0); Basophils % 0.3 % (0-1.3); Hematocrit 36.4 % (39.6-49.0); Hemoglobin 12.5 g/dL (13.6-17.9); Lymphocytes % 1.6 % (15.3-44.8); MCH 31.9 pg (27.0-35.0); MCHC 34.4 g/dL (32.0-36.0); MPV 8.1 fL (7.6-11.3); Monocytes % 8.1 % (3.3-12.3); Nucleated Red Blood Cells % 0.1 % (0-0); Platelets 209 thou/uL (152-406); RBC Red Blood Cell Count 3.91 M/uL (4.33-5.43); Red Cell Distribution Width 14.7 % (12.1-15.2)
[2024-03-08 21:09] LABS: PT Prothrombin Time 13.8 SECONDS (9.5-12.5); Protime INR 1.26
[2024-03-08] MEDS ORDERED: ALBUMIN HUMAN 25% 50 ML IV ONE (21:16)
[2024-03-08 21:32] LABS: Albumin 2.9 g/dL (3.4-5.0); Albumin/Globulin Ratio 0.8 (1.1-1.8); Anion Gap 11.4 mEq/L (5.0-15.0); Bilirubin Direct 0.4 mg/dL (0-0.2); Bilirubin Indirect, Calculated 1.1 mg/dL (0.2-0.8); Bilirubin Total 1.5 mg/dL (0.2-1.0); Globulin 3.6 g/dL (2.3-3.5); Magnesium 1.6 mg/dL (1.6-2.4); Potassium 3.4 mEq/L (3.5-5.1); Protein, Total 6.5 g/dL (6.4-8.2); Troponin High Sensitivity 5.1 pg/mL (<58.9)
--- NOTE | 2024-03-08 21:47 | RAD REPORT ---
EXAM DESCRIPTION: RADChest Single View03/08/2024 8:45 pm CLINICAL HISTORY: CHEST PAIN COMPARISON: Chest Pa And Lat (2 Views) dated 02/15/2024; CHEST SINGLE VIEW dated 10/19/2009 TECHNIQUE: Portable AP view of the chest. FINDINGS: The lungs are clear. No pneumothorax or effusion. The cardiomediastinal contours are unre markable. IMPRESSION: No acute cardiopulmonary process.
[2024-03-08] MEDS ORDERED: NOREPINEPHRINE BITARTRATE/D5W 4 MG/250 ML BAG IV ONE (21:53)
[2024-03-08] MEDS ORDERED: LIDOCAINE 2% MPF 5 ML VIAL ONE (22:15)
[2024-03-08 23:10] LABS: SARS-CoV-2 Antigen CONTROL BLUE LINE VIS/BG OK; SARS-CoV-2 Antigen Rapid Res Negative (Negative)
[2024-03-09] MEDS ORDERED: ACETAMINOPHEN 500 MG TAB ONE (00:16)
[2024-03-09] MEDS ORDERED: NOREPINEPHRINE BITARTRATE/D5W 4 MG/250 ML BAG IV ONE ×2 (00:56→04:01)
[2024-03-09] MEDS ORDERED: MORPHINE 2 MG/ML SYR ONE ×2 (01:31→07:34)
[2024-03-09] MEDS ORDERED: KCL 20 MEQ/100 mL IVPB 100 ML IV ONE (01:32)
[2024-03-09] MEDS ORDERED: LIDOCAINE 1% 20 ML MDV ONE (02:05)
--- NOTE | 2024-03-09 03:03 | ER ---
Nurse's Notes [facility] Name: Zion Chung Age: 73 yrs Sex: Male : 1950 Arrival Date: 03/08/2024 Time: 20:02 Bed 3 Private MD: Diagnosis: Severe sepsis with septic shock;Right double-J ureteral stent, right pyelonephritis with septic shock Presentation: 03/08 20:28 Chief complaint: Patient's son or daughter states: Low bp. Coronavirus screen: Vaccine vc1 status: Patient reports being unvaccinated. Client denies travel out of the [place] in the last 14 days. At this time, the client does not indicate any symptoms associated with coronavirus-19. Note Pt with recent renal stent placed. 20:28 Method Of Arrival: Wheelchair vc1 20:28 Ebola Screen: Patient negative for fever greater than or equal to 101.5 degrees vc1 Fahrenheit, and additional compatible Ebola Virus Disease symptoms Patient denies exposure to infectious person. Patient denies travel to an Ebola-affected area in the 21 days before illness onset. No symptoms or risks identified at this time. Initial Sepsis Screen: Does the patient meet any 2 criteria? RR > 20 per min. Systolic BP < 90 mmHg. HR > 90 bpm. Yes Does the patient have a suspected source of infection? No. Patient's initial sepsis screen is negative. Risk Assessment: Do you want to hurt yourself or someone else? Patient reports no desire to harm self or others. Onset of symptoms was March 08, 2024. Care prior to arrival: None. Activity prior to arrival: None. pt feels weak. Mechanism of Injury: No Mechanism of Injury. Transition of care: patient was not received from another setting of care. 20:28 Acuity: [place] 3 vc1 Triage Assessment: 20:47 General: Appears uncomfortable, slender, Behavior is calm, cooperative, appropriate for vc1 age. Pain: Denies pain. EENT: No deficits noted. No signs and/or symptoms were reported regarding the EENT system. Neuro: Level of Consciousness is awake, alert, obeys commands, Oriented to person, place, time, situation, Appropriate for age Reports weakness Denies dizziness. Cardiovascular: Patient's skin is warm and dry. Rhythm is sinus tachycardia. Respiratory: Airway is patent Respiratory effort is even, unlabored, Respiratory pattern is regular, symmetrical. GI: Abdomen is flat, non-distended. : Her in place to gravity drainage clamped leg bag to right leg Urine is clear, jesenia in color. Derm: Skin is intact, is healthy with good turgor, Skin is dry, Skin is pink, warm \T\ dry. Skin temperature is warm. Musculoskeletal: Range of motion: intact in all extremities, Reports weakness in right leg and left leg. Historical: - Allergies: 20:46 No Known Allergies; vc1 - Home Meds: 20:46 Cipro Oral [Active]; Flomax 0.4 mg Oral capsule 1 cap daily [Active]; Omeprazole Oral vc1 [Active]; - PMHx: 20:46 kidney stones; urinary retention; vc1 - PSHx: 20:46 renal stent; vc1 - Immunization history:: Client reports having NOT received the Covid vaccine. Flu vaccine is not up to date. - Infectious Disease History:: Denies. - Social history:: Smoking status: Patient denies any tobacco usage or history of. Patient/guardian denies using alcohol. - Family history:: not pertinent. Screenin:29 [facility] ED Fall Risk Assessment (Adult) History of falling in the last 3 months, tm6 including since admission No falls in past 3 months (0 pts) Confusion or Disorientation No (0 pts) Intoxicated or Sedated No (0 pts) Impaired Gait No (0 pts) Mobility Assist Device Used No (0 pt) Altered Elimination No (0 pt) Score/Fall Risk Level 0 - 2 = Low Risk Oriented to surroundings, Maintained a safe environment. Abuse screen: Denies threats or abuse. Denies injuries from another. Nutritional screening: No deficits noted. Tuberculosis screening: No symptoms or risk factors identified. 03/09 02:58 Sepsis Screening: . Infection: Patient has suspected or documented infection. Patient tm6 is currently on antibiotics that were not prescribed as prophylaxis. SIRS - Systemic Inflammatory Response Syndrome: 2 or more indicates positive screen: [heart rate greater than 90 beats per minute] [respiratory rate is greater than 20 breaths per minute] [WBC greater than or equal to 12,000/mm3 or less than or equal to 4,000/mm3 or greater than 0.5 K/uL bands] Organ Dysfunction: One or more within 3 days of new infection: [Cardiovascular: SBP < 90mmHG OR 40 mmHG < baseline OR MAP < 65 mmHG] [Renal: urine output < 0.5 ml/kg/hr; creatinine increase of greater than 0.5 mg/dl from baseline]. Assessment: 03/08 20:28 General: code sepsis called. vc1 22:47 General: Appears in no apparent distress. ill, Behavior is calm, cooperative. Pain: tm6 Denies pain. Neuro: Level of Consciousness is awake, alert, obeys commands, Oriented to person, place, time, situation. Cardiovascular: Capillary refill < 3 seconds Patient's skin is warm and dry. Rhythm is sinus tachycardia. Respiratory: Airway is patent Respiratory effort is even, unlabored, Respiratory pattern is regular, symmetrical. GI: No signs and/or symptoms were reported involving the gastrointestinal system. Abdomen is flat, non-distended. : Reports chronic hre with leg bag. EENT: No signs and/or symptoms were reported regarding the EENT system. Derm: No signs and/or symptoms reported regarding the dermatologic system. Musculoskeletal: No signs and/or symptoms reported regarding the musculoskeletal system. 03/09 00:11 Reassessment: Patient and/or family updated on plan of care and expected duration. Pain tm6 level reassessed. Patient is alert, oriented x 3, equal unlabored respirations, skin warm/dry/pink. patient complaining of lower back pain. 01:39 Reassessment: Patient and/or family updated on plan of care and expected duration. Pain tm6 level reassessed. Patient is alert, oriented x 3, equal unlabored respirations, skin warm/dry/pink. 02:00 Reassessment: CVC tugged during transport to [place]. notified. tm6 04:18 Reassessment: report attempted. Charge stated RN was with another patient and would tm6 call back as soon as she got out of the room. 04:43 Reassessment: report given to Maye WORKMAN at [facility]. tm6 06:46 Reassessment: Patient and/or family updated on plan of care and expected duration. Pain tm6 level reassessed. Patient is alert, oriented x 3, equal unlabored respirations, skin warm/dry/pink. 07:44 Reassessment: PT DEBBIE WITH [facility]. bp Vital Signs: 03/08 20:28 BP 75 / 54; Pulse 120; Resp 23; Temp 97.1; Pulse Ox 94% ; Weight 58.97 kg; Height 5 ft. vc1 2 in. ; Pain 0/10; 21:22 BP 99 / 61; Pulse 105; Resp 27; Pulse Ox 100% on R/A; tm6 21:29 BP 83 / 61; Pulse 101; Resp 23; Pulse Ox 97% on R/A; MAP 68 mmHg; tm6 21:30 BP 73 / 54; Pulse 101; Resp 17; Pulse Ox 96% ; MAP 60 mmHg; tm6 21:45 BP 67 / 48; Pulse 91; Resp 24; Pulse Ox 93% on R/A; MAP 54 mmHg; tm6 21:47 BP 81 / 56; Pulse 92; MAP 62 mmHg; tm6 21:55 BP 78 / 63; Pulse 99; MAP 69 mmHg; tm6 22:00 BP 83 / 60; Pulse 98; MAP 69 mmHg; tm6 22:10 BP 83 / 63; Pulse 101; Pulse Ox 100% on 2 lpm NC; MAP 71 mmHg; tm6 22:20 BP 84 / 63; Pulse 101; Pulse Ox 100% on 2 lpm NC; MAP 71 mmHg; tm6 22:40 BP 82 / 65; Pulse 108; Resp 20; Pulse Ox 95% on R/A; MAP 72 mmHg; tm6 22:50 BP 74 / 58; Pulse 105; MAP 65 mmHg; tm6 23:02 BP 67 / 47; Pulse 82; MAP 55 mmHg; tm6 23:05 BP 68 / 55; Pulse 96; MAP 61 mmHg; tm6 23:06 BP 77 / 60; Pulse 99; MAP 67 mmHg; tm6 23:09 BP 92 / 69; Pulse 99; MAP 77 mmHg; tm6 23:12 BP 88 / 66; Pulse 101; MAP 75 mmHg; tm6 23:18 BP 100 / 71; Pulse 102; MAP 81 mmHg; tm6 23:21 BP 99 / 69; Pulse 102; MAP 78 mmHg; tm6 23:27 BP 102 / 66; Pulse 108; MAP 77 mmHg; tm6 04/21 00:00 BP 93 / 67; Pulse 109; Resp 23; Pulse Ox 96% on R/A; MAP 77 mmHg; Pain 4/10; tm6 00:15 BP 96 / 68; Pulse 107; Resp 23; Pulse Ox 93% on R/A; MAP 78 mmHg; tm6 00:30 BP 94 / 67; Pulse 112; Resp 23; Pulse Ox 94% on R/A; MAP 76 mmHg; tm6 00:45 BP 102 / 70; Pulse 110; Resp 23; Pulse Ox 95% on R/A; MAP 80 mmHg; tm6 01:00 BP 92 / 66; Pulse 108; Pulse Ox 95% on R/A; tm6 01:15 BP 92 / 64; Pulse 106; MAP 74 mmHg; tm6 01:30 BP 102 / 68; tm6 01:30 BP 102 / 68; Pulse 112; Resp 26; Pulse Ox 96% on R/A; MAP 79 mmHg; tm6 01:45 BP 99 / 68; Pulse 109; Resp 24; Pulse Ox 96% on R/A; MAP 79 mmHg; tm6 02:00 BP 98 / 67; Pulse 109; Resp 23; Pulse Ox 94% on R/A; MAP 78 mmHg; tm6 02:15 BP 109 / 73; Pulse 110; Resp 24; Pulse Ox 100% on R/A; MAP 85 mmHg; tm6 02:30 BP 106 / 73; Pulse 106; Resp 25; Pulse Ox 95% on R/A; MAP 79 mmHg; tm6 02:45 BP 74 / 55; tm6 02:45 BP 74 / 55; Pulse 106; Resp 25; Pulse Ox 95% ; MAP 62 mmHg; tm6 02:48 BP 66 / 50; tm6 02:48 BP 66 / 50; Pulse 82; MAP 56 mmHg; tm6 02:51 BP 69 / 55; Pulse 89; MAP 51 mmHg; tm6 02:53 BP 95 / 70; Pulse 100; MAP 79 mmHg; tm6 03:00 BP 102 / 74; tm6 03:00 BP 108 / 75; Pulse 97; Resp 18; Pulse Ox 99% ; MAP 85 mmHg; tm6 03:15 BP 105 / 86; Pulse 101; MAP 94 mmHg; tm6 03:30 BP 96 / 70; Pulse 106; Resp 24; Pulse Ox 94% on R/A; MAP 79 mmHg; tm6 03:45 BP 112 / 76; Pulse 108; MAP 88 mmHg; tm6 04:00 BP 105 / 69; MAP 80 mmHg; tm6 04:15 BP 93 / 66; Pulse 106; Resp 22; Pulse Ox 93% on R/A; MAP 75 mmHg; tm6 04:30 BP 98 / 69; Pulse 104; Resp 19; Pulse Ox 94% on R/A; MAP 79 mmHg; tm6 04:45 BP 107 / 71; Pulse 107; Resp 22; Pulse Ox 94% on R/A; MAP 83 mmHg; tm6 05:00 BP 106 / 74; Pulse 105; Resp 24; Pulse Ox 95% on R/A; tm6 05:01 Temp 97.9(TE); tm6 05:15 BP 106 / 72; Pulse 106; Resp 25; Pulse Ox 95% on R/A; MAP 83 mmHg; tm6 05:30 BP 105 / 70; Pulse 110; Resp 25; Pulse Ox 95% on R/A; MAP 82 mmHg; tm6 06:00 BP 105 / 71; Pulse 107; Resp 24; Temp 99(O); Pulse Ox 94% on R/A; MAP 80 mmHg; tm6 06:15 BP 86 / 60; Pulse 103; Resp 21; Pulse Ox 93% on R/A; MAP 70 mmHg; tm6 06:30 BP 105 / 65; Pulse 104; Resp 23; Pulse Ox 93% on R/A; MAP 78 mmHg; tm6 06:45 BP 105 / 67; Pulse 106; Resp 24; Pulse Ox 93% on R/A; tm6 07:44 BP 113 / 75; Pulse 108; Resp 27; Temp 99.1; Pulse Ox 93% ; bp 03/08 20:28 Body Mass Index 23.78 (58.97 kg, 157.48 cm) vc1 03/08 20:28 Pain Scale: Adult vc1 03/09 00:00 Pain Scale: Adult tm6 [place] Coma Score: 02:50 Eye Response: spontaneous(4). Motor Response: obeys commands(6). Verbal Response: sp4 oriented(5). Total: 15. ED Course: 03/08 20:02 Patient arrived in ED. jj6 20:24 Venkata Viera MD is Attending Physician. sp4 20:28 Arm band placed on right wrist. vc1 20:28 Patient has correct armband on for positive identification. Placed in gown. Bed in low vc1 position. Side rails up X2. child monitor on. Pulse ox on. NIBP on. 20:31 Annabelle Malhotra RN is Primary Nurse. tm6 20:46 Triage completed. vc1 20:47 XRAY Chest (1 view) In Process Unspecified. EDMS 20:55 Basic Metabolic Panel Sent. tm6 20:55 CBC with Diff Sent. tm6 20:55 LFT's Sent. tm6 20:55 Magnesium Sent. tm6 20:55 NT PRO-BNP Sent. tm6 20:55 PT-INR Sent. tm6 20:55 Troponin HS Sent. tm6 20:55 Initial lab(s) drawn, by ED staff, sent to lab. First set of blood cultures drawn tm6 Second set of blood cultures drawn by me, EKG done, by ED staff, reviewed by Venkata Viera MD. 21:00 Her cath removed intact, balloon deflated. bm8 21:00 Her cath inserted, using sterile technique, 18 Fr., by me, balloon inflated, to bm8 gravity drainage, other waiting on urine to gather for collection. Inserted saline lock: 20 gauge in left antecubital area, using aseptic technique. Blood collected. 21:10 No provider procedures requiring assistance completed. tm6 21:11 Lactate w/ 2H reflex if indic. Sent. tm6 21:22 Door closed. Noise minimized. Lights dimmed. Warm blanket given. Verbal reassurance bm8 given. 21:24 Inserted saline lock: 18 gauge in right forearm, using aseptic technique. Blood bm8 collected. 21:29 Provided Education on: wait times. Client placed on continuous cardiac and pulse tm6 oximetry monitoring. NIBP monitoring applied. 22:30 Assisted provider with central line placement. Set up central line tray. Triple lumen tm6 line placed in right internal jugular. Line placed by Venkata Viera MD Placement verified by CXR, blood return, Dressed with Tegaderm, Patient tolerated well. Before procedure, did Practitioner(s) obtain informed consent? Yes. Patient \T\ family education about procedure, CLABSI prevention and S/S of infection? Yes. Time-out/Briefing performed prior to start of procedure? Yes. Was handwashing/sanitizing done immediately prior to procedure? Yes. Was patient positioned to in a way to prevent air embolism? Yes. Was procedure site sterilized? Yes, with chlorhexidine. Was the site allowed to dry? Yes. Was local anesthetic and/or sedation utilized? Yes. During the procedure, did the Practitioner(s) maintain a sterile field? Yes. Were unused ports clamped during insertion? Yes. Was blood aspirated from each lumen? Yes. After the procedure, did the Practitioner(s) clean the site and apply a sterile dressing? Yes. 22:43 Chest Single View XRAY In Process Unspecified. EDMS 22:47 One-on-one care X 60 minutes. tm6 22:49 SARS RAPID Sent. tm6 22:49 Influenza Screen (a \T\ B) Sent. tm6 03/09 01:39 CT Chest Abdomen Pelvis W/O Contrast In Process Unspecified. EDMS 02:40 Assisted provider with central line placement. Set up central line tray. Triple lumen tm6 line placed in left internal jugular. Line placed by Venkata Viera MD Placement verified by CXR, blood return, Dressed with Patient tolerated well. Before procedure, did Practitioner(s) obtain informed consent? Yes. Patient \T\ family education about procedure, CLABSI prevention and S/S of infection? Yes. Time-out/Briefing performed prior to start of procedure? Yes. Was handwashing/sanitizing done immediately prior to procedure? Yes. Was patient positioned to in a way to prevent air embolism? Yes. Was procedure site sterilized? Yes, with chlorhexidine. Was the site allowed to dry? Yes. Was local anesthetic and/or sedation utilized? Yes. During the procedure, did the Practitioner(s) maintain a sterile field? Yes. Were unused ports clamped during insertion? Yes. Was blood aspirated from each lumen? Yes. After the procedure, did the Practitioner(s) clean the site and apply a sterile dressing? Yes. 02:43 Notified ED physician of a critical lab result(s). CT chest/abd shows IJ not vc1 ntravascular. 03:02 Chest Single View XRAY In Process Unspecified. EDMS 03:47 Removal of. tm6 03:48 Removal of right IJ CVC removed. tm6 07:04 Report given to Aden WORKMAN. tm6 07:45 Patient transferred, IV remains in place. bp Administered Medications: 03/08 21:11 Drug: NS 0.9% IV 1000 ml IV at 1 bolus Per protocol; 1000 mL bolus Route: IV; Rate: 1 tm6 bolus; Site: left forearm; 22:32 Follow up: IV Status: Completed infusion; IV Intake: 1000ml tm6 21:11 Drug: NS 0.9% IV 1000 ml IV at 125 ml/hr continuous Route: IV; Rate: 125 ml/hr; Site: tm6 left forearm; 03/09 07:43 Follow up: IV Status: Infusion continued upon transfer bp 03/08 21:13 Drug: Albumin IVPB 25 grams 100 ml IVPB once; (Note: Albumin 25% concentration) Volume: bm8 100 ml; Route: IVPB; Site: left antecubital; 03/09 07:44 Follow up: IV Status: Completed infusion; IV Intake: 100ml bp 03/08 21:14 Drug: Piperacillin-Tazobactam IVPB 3.375 grams IVPB once over 60 mins; (mix in NS 100 bm8 mL) Route: IVPB; Infused Over: 60 mins; Site: right forearm; 03/09 07:44 Follow up: IV Status: Completed infusion; IV Intake: 100ml bp 03/08 21:40 Drug: NS 0.9% IV 1000 ml IV at 1 bolus Per protocol; 1000 mL bolus Route: IV; Rate: 1 tm6 bolus; Site: right forearm; 22:32 Follow up: IV Status: Completed infusion; IV Intake: 1000ml tm6 22:22 Drug: Norepinephrine IV 0.1 mcg/kg/min IV at calculated rate See Administration tm6 Instructions; (Standard concentration 4 mg / 250 mL D5W); Recommended max rate 3 mcg/kg/min; Titrate 0.05 mcg/kg/min as often as every 5 minutes to achieve goal (see titration policy); Goal parameter MAP greater than 65 mmHg. {Note: start at 10mcg/min per MD.} Route: IV; Rate: calculated rate; Site: right forearm; 22:52 Follow up: Rate change 12 mcg/min tm6 23:02 Follow up: Rate change 20 mcg/min tm6 23:06 Follow up: Rate change 25 mcg/min tm6 23:09 Follow up: Rate change 30 mcg/min tm6 23:18 Follow up: Rate change 28 mcg/min tm6 23:38 Follow up: Rate change 25 mcg/min tm6 03/09 00:45 Follow up: Rate change 22 mcg/min tm6 01:30 Follow up: BP 102 / 68; Rate change 18 mcg/min tm6 02:45 Follow up: BP 74 / 55; Rate change 25 mcg/min tm6 02:48 Follow up: BP 66 / 50; Rate change 30 mcg/min tm6 03:00 Follow up: BP 102 / 74; Rate change 28 mcg/min tm6 03:25 Follow up: Rate change 25 mcg/min tm6 03:40 Follow up: Rate change 20 mcg/min tm6 04:00 Follow up: Rate change 15 mcg/min tm6 05:01 Follow up: Rate change 13 mcg/min tm6 05:15 Follow up: Rate change 10 mcg/min tm6 05:39 Follow up: Rate change 5 mcg/min tm6 06:00 Follow up: Rate change 3 mcg/min tm6 07:43 Follow up: IV Status: Infusion continued upon transfer bp 03/08 22:38 Drug: vancoMYCIN IVPB 1 grams IVPB once over 2 hrs Route: IVPB; Infused Over: 2 hrs; tm6 Site: right forearm; 03/09 07:44 Follow up: IV Status: Completed infusion; IV Intake: 250ml bp 00:19 Drug: Acetaminophen PO 1000 mg PO once Route: PO; tm6 07:43 Follow up: Response: No adverse reaction bp 01:12 Drug: Sodium Bicarbonate IVP 1 amp IVP once; (50 mL); equals 50 mEq Route: IVP; Site: tm6 Other; 07:43 Follow up: Response: No adverse reaction bp 01:50 Drug: morphine IVP or IV 2 mg IVP once over 4 mins Route: IVP; Infused Over: 4 mins; tm6 Site: right forearm; 07:43 Follow up: Response: No adverse reaction bp 02:51 Drug: Lidocaine Infiltration (1 %) 20 ml 20 ml Infiltration once; to bedside {Note: tm6 administered by MDBobbi} Volume: 20 ml; Route: Infiltration; 04:00 Drug: Vasopressin IV 0.02 units/min IV at calculated rate continuous Route: IV; Rate: tm6 calculated rate; Site: left jugular; 07:42 Follow up: IV Status: Infusion continued upon transfer bp 04:16 Drug: Potassium Chloride IV 20 mEq IV at calculated rate once; administer over 1-2 tm6 hours Route: IV; Rate: calculated rate; Site: left jugular; 07:43 Follow up: IV Status: Completed infusion; IV Intake: 100ml bp 07:42 Drug: morphine IVP or IV 2 mg IVP once over 4 mins Route: IVP; Infused Over: 4 mins; bp Site: right antecubital; 07:43 Follow up: Response: No adverse reaction bp Medication: 03:48 VIS not applicable for this client. tm6 Intake: 03/08 22:32 IV: 1000ml; Total: 1000ml. tm6 22:32 IV: 1000ml; Total: 2000ml. tm6 03/09 07:43 IV: 100ml; Total: 2100ml. bp 07:44 IV: 100ml; Total: 2200ml. bp 07:44 IV: 250ml; Total: 2450ml. bp 07:44 IV: 100ml; Total: 2550ml. bp Outcome: 03:02 ER care complete, transfer ordered by . sp4 07:45 Transferred by ground EMS to [facility], bp 07:45 Condition: stable 07:45 Instructed on the need for transfer, 07:46 Patient left the ED. bp Signatures: Dispatcher [employer] EDMS Aden Bolden, RN RN bp Ninfa Strong6 Jazmine Jauregui RN Venkata Chavez MD MD spAnnabelle Armendariz RN RN tm6 Ramiro Mendez, RN RN bm8 Corrections: (The following items were deleted from the chart) 03/08 20:50 20:47 Arm band placed on right wrist. vc1 vc1 03/09 01:48 03/08 21:15 Initial lab(s) drawn, by ED staff, sent to lab. First set of blood cultures tm6 drawn Second set of blood cultures drawn by me, EKG done, by ED staff, reviewed by Venkata nick 03/09 01:48 03/08 21:24 No provider procedures requiring assistance completed. bm8 tm6 03/09 01:50 03/08 21:05 Initial lab(s) drawn, by ED staff, sent to lab. First set of blood cultures tm6 drawn Second set of blood cultures drawn by me, EKG done, by ED staff, reviewed by Venkata Viera MD tm6
--- NOTE | 2024-03-09 03:03 | EDPHYS ---
Physician Documentation [facility] Name: Zion Chung Age: 73 yrs Sex: Male : 1950 Arrival Date: 03/08/2024 Time: 20:02 Bed 3 Private MD: ED Physician Venkata Viera HPI: 03/09 01:26 This 73 yrs old Male presents to ER via Wheelchair with complaints of LOW BP. sp4 02:48 Presents from home with generalized weakness and low blood pressure. Patient apparently sp4 had left ureteral stent placed 02/26/2024. Patient had a right nephro ureteral lithiasis and left nephrolithiasis. Urology has placed a right 7 [place] ureteral stent on 02/26/2024. Patient was here yesterday and had urinary catheter placement for acute urinary retention. . 02:50 PMH from 02/26/2024 - Preoperative Diagnoses: 1. Right nephroureterolithiasis. 2. Left sp4 nephrolithiasis. Postoperative Diagnoses: 1. Right nephroureterolithiasis. 2. Left nephrolithiasis. 3. Subcoronal hypospadias. 4. Meatal stenosis. 5. 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 Principal Procedures: 1. Meatal dilation using sounds. 2. Cystoscopy. 3. Right retrograde pyelography. 4. Right ureteroscopy with laser lithotripsy and stone basketing. 5. Right ureteral dilation. 6. Right 7-[place] ureteral stent placement. Historical: - Allergies: 03/08 20:46 No Known Allergies; vc1 - Home Meds: 20:46 Cipro Oral [Active]; Flomax 0.4 mg Oral capsule 1 cap daily [Active]; Omeprazole Oral vc1 [Active]; - PMHx: 20:46 kidney stones; urinary retention; vc1 - PSHx: 20:46 renal stent; vc1 - Immunization history:: Client reports having NOT received the Covid vaccine. Flu vaccine is not up to date. - Infectious Disease History:: Denies. - Social history:: Smoking status: Patient denies any tobacco usage or history of. Patient/guardian denies using alcohol. - Family history:: not pertinent. ROS: 03/09 02:50 Constitutional: Negative for fever, chills, and weight loss, positive generalized sp4 weakness, positive pallor, positive hypertension All other systems are negative, Exam: 02:50 Constitutional: This is a well developed, well nourished patient who is awake, alert, sp4 Pale, ill appearing, hypotensive on arrival 02:50 Head/Face: Normocephalic, atraumatic. Eyes: Pupils equal round and reactive to light, extra-ocular motions intact. Lids and lashes normal. Conjunctiva and sclera are not injected. Cornea within normal limits. Periorbital areas with no swelling, redness, or edema. ENT: Nares patent. No nasal discharge, no septal abnormalities noted. Tympanic membranes are normal and external auditory canals are clear. Oropharynx with no redness, swelling, or masses, exudates, or evidence of obstruction, uvula midline. Mucous membranes moist. Neck: Trachea midline, no thyromegaly or masses palpated, and no cervical lymphadenopathy. Supple, full range of motion without nuchal rigidity, or vertebral point tenderness. Chest/axilla: Normal chest wall appearance and motion. Nontender with no deformity. No lesions are appreciated. Cardiovascular: Regular rate and rhythm with a normal S1 and S2. No gallops, murmurs, or rubs. Normal PMI, no JVD. No pulse deficits. Respiratory: Lungs have equal breath sounds bilaterally, clear to auscultation and percussion. No rales, rhonchi or wheezes noted. No increased work of breathing, no retractions or nasal flaring. Abdomen/GI: Soft, with normal bowel sounds. No distension or tympany. No guarding or rebound. No evidence of tenderness throughout. Back: No spinal tenderness. No costovertebral tenderness. Male : Normal genitalia with no discharge or lesions. Indwelling Jose Cath Skin: Warm, dry with normal turgor. Normal color with no rashes, no lesions, and no evidence of cellulitis. MS/ Extremity: Pulses equal, no cyanosis. Neurovascular intact. Full, normal range of motion. Neuro: Awake and alert, GCS 15, oriented to person, place, time, and situation. Cranial nerves II-XII grossly intact. Motor strength 5/5 in all extremities. Sensory grossly intact. Psych: Awake, alert, with orientation to person, place and time. Behavior, mood, and affect are within normal limits Vital Signs: 03/08 20:28 BP 75 / 54; Pulse 120; Resp 23; Temp 97.1; Pulse Ox 94% ; Weight 58.97 kg; Height 5 ft. vc1 2 in. ; Pain 0/10; 21:22 BP 99 / 61; Pulse 105; Resp 27; Pulse Ox 100% on R/A; tm6 21:29 BP 83 / 61; Pulse 101; Resp 23; Pulse Ox 97% on R/A; MAP 68 mmHg; tm6 21:30 BP 73 / 54; Pulse 101; Resp 17; Pulse Ox 96% ; MAP 60 mmHg; tm6 21:45 BP 67 / 48; Pulse 91; Resp 24; Pulse Ox 93% on R/A; MAP 54 mmHg; tm6 21:47 BP 81 / 56; Pulse 92; MAP 62 mmHg; tm6 21:55 BP 78 / 63; Pulse 99; MAP 69 mmHg; tm6 22:00 BP 83 / 60; Pulse 98; MAP 69 mmHg; tm6 22:10 BP 83 / 63; Pulse 101; Pulse Ox 100% on 2 lpm NC; MAP 71 mmHg; tm6 22:20 BP 84 / 63; Pulse 101; Pulse Ox 100% on 2 lpm NC; MAP 71 mmHg; tm6 22:40 BP 82 / 65; Pulse 108; Resp 20; Pulse Ox 95% on R/A; MAP 72 mmHg; tm6 22:50 BP 74 / 58; Pulse 105; MAP 65 mmHg; tm6 23:02 BP 67 / 47; Pulse 82; MAP 55 mmHg; tm6 23:05 BP 68 / 55; Pulse 96; MAP 61 mmHg; tm6 23:06 BP 77 / 60; Pulse 99; MAP 67 mmHg; tm6 23:09 BP 92 / 69; Pulse 99; MAP 77 mmHg; tm6 23:12 BP 88 / 66; Pulse 101; MAP 75 mmHg; tm6 23:18 BP 100 / 71; Pulse 102; MAP 81 mmHg; tm6 23:21 BP 99 / 69; Pulse 102; MAP 78 mmHg; tm6 23:27 BP 102 / 66; Pulse 108; MAP 77 mmHg; tm6 03/09 00:00 BP 93 / 67; Pulse 109; Resp 23; Pulse Ox 96% on R/A; MAP 77 mmHg; Pain 4/10; tm6 00:15 BP 96 / 68; Pulse 107; Resp 23; Pulse Ox 93% on R/A; MAP 78 mmHg; tm6 00:30 BP 94 / 67; Pulse 112; Resp 23; Pulse Ox 94% on R/A; MAP 76 mmHg; tm6 00:45 BP 102 / 70; Pulse 110; Resp 23; Pulse Ox 95% on R/A; MAP 80 mmHg; tm6 01:00 BP 92 / 66; Pulse 108; Pulse Ox 95% on R/A; tm6 01:15 BP 92 / 64; Pulse 106; MAP 74 mmHg; tm6 01:30 BP 102 / 68; tm6 01:30 BP 102 / 68; Pulse 112; Resp 26; Pulse Ox 96% on R/A; MAP 79 mmHg; tm6 01:45 BP 99 / 68; Pulse 109; Resp 24; Pulse Ox 96% on R/A; MAP 79 mmHg; tm6 02:00 BP 98 / 67; Pulse 109; Resp 23; Pulse Ox 94% on R/A; MAP 78 mmHg; tm6 02:15 BP 109 / 73; Pulse 110; Resp 24; Pulse Ox 100% on R/A; MAP 85 mmHg; tm6 02:30 BP 106 / 73; Pulse 106; Resp 25; Pulse Ox 95% on R/A; MAP 79 mmHg; tm6 02:45 BP 74 / 55; tm6 02:45 BP 74 / 55; Pulse 106; Resp 25; Pulse Ox 95% ; MAP 62 mmHg; tm6 02:48 BP 66 / 50; tm6 02:48 BP 66 / 50; Pulse 82; MAP 56 mmHg; tm6 02:51 BP 69 / 55; Pulse 89; MAP 51 mmHg; tm6 02:53 BP 95 / 70; Pulse 100; MAP 79 mmHg; tm6 03:00 BP 102 / 74; tm6 03:00 BP 108 / 75; Pulse 97; Resp 18; Pulse Ox 99% ; MAP 85 mmHg; tm6 03:15 BP 105 / 86; Pulse 101; MAP 94 mmHg; tm6 03:30 BP 96 / 70; Pulse 106; Resp 24; Pulse Ox 94% on R/A; MAP 79 mmHg; tm6 03:45 BP 112 / 76; Pulse 108; MAP 88 mmHg; tm6 04:00 BP 105 / 69; MAP 80 mmHg; tm6 04:15 BP 93 / 66; Pulse 106; Resp 22; Pulse Ox 93% on R/A; MAP 75 mmHg; tm6 04:30 BP 98 / 69; Pulse 104; Resp 19; Pulse Ox 94% on R/A; MAP 79 mmHg; tm6 04:45 BP 107 / 71; Pulse 107; Resp 22; Pulse Ox 94% on R/A; MAP 83 mmHg; tm6 05:00 BP 106 / 74; Pulse 105; Resp 24; Pulse Ox 95% on R/A; tm6 05:01 Temp 97.9(TE); tm6 05:15 BP 106 / 72; Pulse 106; Resp 25; Pulse Ox 95% on R/A; MAP 83 mmHg; tm6 05:30 BP 105 / 70; Pulse 110; Resp 25; Pulse Ox 95% on R/A; MAP 82 mmHg; tm6 06:00 BP 105 / 71; Pulse 107; Resp 24; Temp 99(O); Pulse Ox 94% on R/A; MAP 80 mmHg; tm6 06:15 BP 86 / 60; Pulse 103; Resp 21; Pulse Ox 93% on R/A; MAP 70 mmHg; tm6 06:30 BP 105 / 65; Pulse 104; Resp 23; Pulse Ox 93% on R/A; MAP 78 mmHg; tm6 06:45 BP 105 / 67; Pulse 106; Resp 24; Pulse Ox 93% on R/A; tm6 07:44 BP 113 / 75; Pulse 108; Resp 27; Temp 99.1; Pulse Ox 93% ; bp 20 20:28 Body Mass Index 23.78 (58.97 kg, 157.48 cm) vc1 03/08 20:28 Pain Scale: Adult vc1 03/09 00:00 Pain Scale: Adult tm6 Heath Coma Score: 02:50 Eye Response: spontaneous(4). Motor Response: obeys commands(6). Verbal Response: sp4 oriented(5). Total: 15. Procedures: 02:54 Central Line: the site was prepped with in sterile fashion, Chlorhexidine prep, a sp4 triple lumen catheter was inserted, in the right internal jugular vein, in 1 attempts. placement was verified, by CXR, by blood return, the site was dressed with 4X4s, Tegaderm, using sterile technique, the patient tolerated the procedure, well, Ultrasound-guided right central venous line placed. 02:57 Central Line: Apparently right internal jugular CVL was partially pulled out by sp4 accident and the CAT scan. After patient was consented left internal jugular CVL was placed without complications. Left CVL was placed with ultrasound guidance. MDM: 03/08 20:24 Patient medically screened. sp4 03/09 01:27 ED course: EXAM: XR Chest, 1 View CLINICAL HISTORY: The patient is 73 years old and is sp4 Male; Right central line IJ TECHNIQUE: Frontal view of the chest. COMPARISON: No relevant prior studies available. FINDINGS: LUNGS: Unremarkable. No consolidation. PLEURAL SPACE: Unremarkable. No pneumothorax. HEART: Unremarkable. No cardiomegaly. MEDIASTINUM: Unremarkable. Normal mediastinal contour. BONES/JOINTS: Unremarkable. No acute fracture. TUBES, LINES AND DEVICES: A right IJ central venous catheter is present with the tip at the SVC/RA junction. UPPER ABDOMEN: Unremarkable as visualized. IMPRESSION: A right IJ central venous catheter is present with the tip at the SVC/RA junction. . 02:54 ED course: CT had revealed - KIDNEYS AND URETERS: Mild right hydroureteronephrosis is sp4 noted. Extensive right perinephric fluid and stranding is present. A moderate varus of the right kidney is noted. Bilateral intrarenal calcifications are present. An obstructing calculus is not seen. A right ureteral stent in place. . 02:58 Differential Diagnosis altered mental status, sepsis, flu. Data reviewed: vital signs, sp4 nurses notes, old medical records, lab test result(s), cardiac enzymes, drug level(s), electrolytes, hepatic panel, urinalysis, EKG, radiologic studies, CT scan, plain films. Consideration of Admission/Observation Patient was admitted/placed on observation. Escalation of care including admission/observation considered. Management of patient was discussed with the following: Event Specialist Product Demonstrator: Urology at [facility]. ED course: Patient most likely has a right pyelonephritis with infected ureteral stent on the right side. Septic shock was managed with IV vancomycin and Zosyn and also IV Levophed, urologist is not on-call this weekend. Patient should be transferred for management in ICU and consultation with urologist on emergent basis. 03:21 ED course: Have 0 3:21 patient was accepted to [facility] ICU.. sp4 05:18 Post IV fluid administration reassessment for Sepsis: Client not prescribed the 30 sp4 mL/kg IVF due to: concern for fluid overload. concern related to heart failure. Focused assessment performed: March 09, 2024 at 05:18 Current patient vital signs reviewed: Yes. Other: Sepsis reevaluation completed. We could not administer 30 mL/kg IV fluid bolus dose secondary to the fact that patient has clear signs of volume overload. Patient has improved overall with IV Levophed ongoing. . 03/08 20:24 Order name: Basic Metabolic Panel; Complete Time: 21:39 4 03/08 20:24 Order name: CBC with Diff; Complete Time: 21:39 4 03/08 20:24 Order name: LFT's; Complete Time: 21:39 sp4 03/08 20:24 Order name: Magnesium; Complete Time: 21:39 sp4 03/08 20:24 Order name: NT PRO-BNP; Complete Time: 21:39 4 03/08 20:24 Order name: PT-INR; Complete Time: 21:39 4 03/08 20:24 Order name: Troponin HS; Complete Time: 21:39 [facility] 03/08 20:33 Order name: Blood Culture Adult (2) [facility] 03/08 20:33 Order name: Lactate w/ 2H reflex if indic.; Complete Time: 22:22 4 03/08 22:23 Order name: Influenza Screen (a \T\ B); Complete Time: 01:05 [facility] 03/08 22:23 Order name: SARS RAPID; Complete Time: 01:05 [facility] 03/09 00:41 Order name: Lactate Sepsis 2 HR Follow-up; Complete Time: 01:05 [facility] 03/08 20:24 Order name: XRAY Chest (1 view); Complete Time: 22:22 [facility] 03/08 22:22 Order name: Chest Single View XRAY [facility] 03/08 22:23 Order name: CT Chest Abdomen Pelvis W/O Contrast 03/09 02:48 Order name: Chest Single View XRAY [facility] 03/08 20:24 Order name: EKG; Complete Time: 20:25 [facility] 03/08 20:24 Order name: Cardiac monitoring; Complete Time: 20:36 4 03/08 20:24 Order name: EKG - Nurse/Tech; Complete Time: 21:19 sp4 03/08 20:24 Order name: IV Saline Lock; Complete Time: 21:19 4 04/20 20:24 Order name: Labs collected and sent; Complete Time: 21:19 sp4 03/08 20:24 Order name: O2 Per Protocol; Complete Time: 20:36 sp4 03/08 20:24 Order name: O2 Sat Monitoring; Complete Time: 20:36 sp4 03/08 21:40 Order name: Central Line Kit; Complete Time: 22:32 sp4 03/09 02:00 Order name: Central Line Kit; Complete Time: 02:51 sp4 Administered Medications: 03/08 21:11 Drug: NS 0.9% IV 1000 ml IV at 1 bolus Per protocol; 1000 mL bolus Route: IV; Rate: 1 tm6 bolus; Site: left forearm; 22:32 Follow up: IV Status: Completed infusion; IV Intake: 1000ml tm6 21:11 Drug: NS 0.9% IV 1000 ml IV at 125 ml/hr continuous Route: IV; Rate: 125 ml/hr; Site: 6 left forearm; 03/09 07:43 Follow up: IV Status: Infusion continued upon transfer bp 03/08 21:13 Drug: Albumin IVPB 25 grams 100 ml IVPB once; (Note: Albumin 25% concentration) Volume: bm8 100 ml; Route: IVPB; Site: left antecubital; 03/09 07:44 Follow up: IV Status: Completed infusion; IV Intake: 100ml bp 03/08 21:14 Drug: Piperacillin-Tazobactam IVPB 3.375 grams IVPB once over 60 mins; (mix in NS 100 bm8 mL) Route: IVPB; Infused Over: 60 mins; Site: right forearm; 03/09 07:44 Follow up: IV Status: Completed infusion; IV Intake: 100ml bp 03/08 21:40 Drug: NS 0.9% IV 1000 ml IV at 1 bolus Per protocol; 1000 mL bolus Route: IV; Rate: 1 tm6 bolus; Site: right forearm; 22:32 Follow up: IV Status: Completed infusion; IV Intake: 1000ml tm6 22:22 Drug: Norepinephrine IV 0.1 mcg/kg/min IV at calculated rate See Administration tm6 Instructions; (Standard concentration 4 mg / 250 mL D5W); Recommended max rate 3 mcg/kg/min; Titrate 0.05 mcg/kg/min as often as every 5 minutes to achieve goal (see titration policy); Goal parameter MAP greater than 65 mmHg. {Note: start at 10mcg/min per MD.} Route: IV; Rate: calculated rate; Site: right forearm; 22:52 Follow up: Rate change 12 mcg/min tm6 23:02 Follow up: Rate change 20 mcg/min tm6 23:06 Follow up: Rate change 25 mcg/min tm6 23:09 Follow up: Rate change 30 mcg/min tm6 23:18 Follow up: Rate change 28 mcg/min tm6 23:38 Follow up: Rate change 25 mcg/min tm6 0421 00:45 Follow up: Rate change 22 mcg/min tm6 01:30 Follow up: BP 102 / 68; Rate change 18 mcg/min tm6 02:45 Follow up: BP 74 / 55; Rate change 25 mcg/min tm6 02:48 Follow up: BP 66 / 50; Rate change 30 mcg/min tm6 03:00 Follow up: BP 102 / 74; Rate change 28 mcg/min tm6 03:25 Follow up: Rate change 25 mcg/min tm6 03:40 Follow up: Rate change 20 mcg/min tm6 04:00 Follow up: Rate change 15 mcg/min tm6 05:01 Follow up: Rate change 13 mcg/min tm6 05:15 Follow up: Rate change 10 mcg/min tm6 05:39 Follow up: Rate change 5 mcg/min tm6 06:00 Follow up: Rate change 3 mcg/min tm6 07:43 Follow up: IV Status: Infusion continued upon transfer bp 03/08 22:38 Drug: vancoMYCIN IVPB 1 grams IVPB once over 2 hrs Route: IVPB; Infused Over: 2 hrs; 6 Site: right forearm; 03/09 07:44 Follow up: IV Status: Completed infusion; IV Intake: 250ml bp 00:19 Drug: Acetaminophen PO 1000 mg PO once Route: PO; tm6 07:43 Follow up: Response: No adverse reaction bp 01:12 Drug: Sodium Bicarbonate IVP 1 amp IVP once; (50 mL); equals 50 mEq Route: IVP; Site: tm6 Other; 07:43 Follow up: Response: No adverse reaction bp 01:50 Drug: morphine IVP or IV 2 mg IVP once over 4 mins Route: IVP; Infused Over: 4 mins; tm6 Site: right forearm; 07:43 Follow up: Response: No adverse reaction bp 02:51 Drug: Lidocaine Infiltration (1 %) 20 ml 20 ml Infiltration once; to bedside {Note: tm6 administered by MD.} Volume: 20 ml; Route: Infiltration; 04:00 Drug: Vasopressin IV 0.02 units/min IV at calculated rate continuous Route: IV; Rate: tm6 calculated rate; Site: left jugular; 07:42 Follow up: IV Status: Infusion continued upon transfer bp 04:16 Drug: Potassium Chloride IV 20 mEq IV at calculated rate once; administer over 1-2 tm6 hours Route: IV; Rate: calculated rate; Site: left jugular; 07:43 Follow up: IV Status: Completed infusion; IV Intake: 100ml bp 07:42 Drug: morphine IVP or IV 2 mg IVP once over 4 mins Route: IVP; Infused Over: 4 mins; bp Site: right antecubital; 07:43 Follow up: Response: No adverse reaction bp Disposition Summary: 03/09/24 03:02 Transfer Ordered Notes: Transfer Location: [facility] sp4 Reason: Higher level of care sp4 Condition: Stable sp4 Problem: new sp4 Symptoms: have improved sp4 Accepting Physician: [place] [facility](03/09/24 07:46) bp Diagnosis - Severe sepsis with septic shock sp4 - Right double-J ureteral stent, right pyelonephritis with septic shock sp4 Discharge Instructions: - Discharge Summary Sheet tm6 Forms: - Medication Reconciliation Form sp4 - SBAR form sp4 Critical care time excluding procedures: 03:02 Critical care time: Bedside Care: 46 minutes, Consultation: 12 minutes, Family sp4 Intervention: 12 minutes. Total time: 70 minutes Signatures: Dispatcher [employer] Aden Miller, RN RN bp Jazmine Jauregui RN RN vc1 Jesse Monson MD MD rt Venkata Viera MD MD sp4 Annabelle Malhotra RN RN tm6 Ramiro Mendez RN RN bm8 Corrections: (The following items were deleted from the chart) 07:46 03:02 [place] [facility] sp4 bp
[2024-03-09] MEDS ORDERED: NA CHLORIDE 0.9% 50 ML ONE (03:58)
[2024-03-09] MEDS ORDERED: VASOPRESSIN 20 UNIT/ML VIAL ONE (03:58)
[2024-03-09 09:26] VITALS: BP 113/75; TEMP 99.1; O2SAT 93
--- NOTE | 2024-03-09 18:37 | RAD REPORT ---
EXAM DESCRIPTION: RAD - Chest Single View - 03/09/2024 3:00 am CLINICAL HISTORY: Male, 73 years old, Left IJ placement TECHNIQUE: 1 view COMPARISON: 03/08/2024 FINDINGS: SUPPORT DEVICES: Intervally placed left neck age approach central catheter with tip overly ing the right atrium. Right neck base approach catheter is unchanged from prior CT. LUNGS/PLEURA: Basilar linear opacities likely represent scarring/atelectasis. No consolidation, pleur al effusion or pneumothorax. HEART/MEDIASTINUM: Normal size and configuration. Moderate sized hiatal hernia. OTHER: Osseous structures are unchanged. IMPRESSION: 1. Left neck base approach central catheter projects with tip overlying the right atri um. 2. The right neck base approach catheter unchanged in position from prior CT; persistent concern fo r extravascular position. 3. No acute cardiopulmonary findings. Electronically signed by: Arsenio Feldman MD 03/09/2024 04:08 AM CDT Due to temporary technical issues with the PACS/Fluency reporting system, reports are being signed by the in house radiologists without review as a courtesy to insure prompt reporting. The interpreting radiologist is fully responsible for the content of the report.
--- NOTE | 2024-03-09 20:39 | RAD REPORT ---
EXAM DESCRIPTION: RAD - Chest Single View - 03/08/2024 10:41 pm CLINICAL HISTORY: The patient is 73 years old and is Male; Right central line IJ TECHNIQUE: Frontal view of the chest. COMPARISON: No relevant prior studies available. FINDINGS: LUNGS: Unremarkable. No consolidation. PLEURAL SPACE: Unremarkable. No pneumothorax. HEART: Unremarkable. No cardiomegaly. MEDIASTINUM: Unremarkable. Normal mediastinal contour. BONES/JOINTS: Unremarkable. No acute fracture. TUBES, LINES AND DEVICES: A right IJ central venous catheter is present with the tip at the SVC/R A junction. UPPER ABDOMEN: Unremarkable as visualized. IMPRESSION: A right IJ central venous catheter is present with the tip at the SVC/RA junction. Electronically signed by: Yesenia Perera MD 03/08/2024 11:02 PM CDT Due to temporary technical issues with the PACS/Fluency reporting system, reports are being signed by the in house radiologists without review as a courtesy to insure prompt reporting. The interpreting radiologist is fully responsible for the content of the report.
--- NOTE | 2024-03-09 20:41 | RAD REPORT ---
EXAM DESCRIPTION: CT - Chest Abd Pelvis Wo Con - 03/09/2024 6:53 am ADDENDUM #1 THIS REPORT CONTAINS FINDINGS THAT MAY BE CRITICAL TO PATIENT CARE: Notification that the physician w as unable to speak on the phone occurred at 03/09/2024 2:41 AM CDT. I discussed the findings with RN Criss Jauregui who agreed to take the results on the phone on behalf of the physician, and acknowledg es their critical nature. Electronically signed by: Yesenia Perera MD 03/09/2024 02:41 AM CDT End of Addendum CT Chest, Abdomen and Pelvis Without Intravenous Contrast CLINICAL HISTORY: The patient is 73 years old and is Male; eval for pyelonephritis TECHNIQUE: Axial computed tomography images of the chest, abdomen and pelvis without intravenous con trast. Sagittal and coronal reformatted images were created and reviewed. This CT exam was perfor med using one or more of the following dose reduction techniques: automated exposure control, adjus tment of the mA and/or kV according to patient size, and/or use of iterative reconstruction technique . COMPARISON: CT Chest Abdomen Pelvis dated February 07 2024 FINDINGS: CHEST: LUNGS: Minimal dependent densities in the lung bases are noted. The lungs are otherwise well-infl ated and clear. PLEURAL SPACE: Unremarkable. No significant effusion. No pneumothorax. HEART: No cardiomegaly. No pericardial effusion. MEDIASTINUM: A moderate-sized hiatal hernia is present. Esophagus is fluid-filled. ABDOMEN: LIVER: Cysts are present within the left hepatic lobe. The liver is otherwise homogeneous. GALLBLADDER AND BILE DUCTS: The gallbladder is distended. No calcified gallstones or ductal dilat ation is seen. PANCREAS: Unremarkable. No ductal dilation. SPLEEN: Unremarkable. ADRENALS: Unremarkable. No mass. KIDNEYS AND URETERS: Mild right hydroureteronephrosis is noted. Extensive right perinephric fluid and stranding is present. A moderate varus of the right kidney is noted. Bilateral intrarenal calcif ications are present. An obstructing calculus is not seen. STOMACH AND BOWEL: The stomach is distended with food contents and air. The small bowel is relati vely normal in caliber. A moderate amount of stool is present throughout the colon. Scattered colonic diverticula are present without surrounding inflammation. There is no mucosal thickening or evidence of obstruction. PELVIS: APPENDIX: No findings to suggest acute appendicitis. BLADDER: A Jose catheter is present within the bladder which is decompressed. No stones. REPRODUCTIVE: The prostate is enlarged and heterogeneous. CHEST, ABDOMEN and PELVIS: INTRAPERITONEAL SPACE: Unremarkable. No significant fluid collection. No free air. BONES/JOINTS: Scoliotic curvature of the spine is present. There is no acute fracture. SOFT TISSUES: There are small bilateral fat containing inguinal hernias. Surgical clips are pre sent within the left inguinal region. Small bilateral fat containing inguinal hernias are present. VASCULATURE: Unremarkable. No aortic aneurysm. LYMPH NODES: Unremarkable. No enlarged lymph nodes. TUBES, LINES AND DEVICES: A right IJ central venous catheter is present with the tip not intravas cular. IMPRESSION: 1. Right IJ central venous catheter tip is not intravascular. Recommend complete remov al and replacement. 2. Moderate right perinephric stranding and fluid with right double-J ureteral stent in place. Mild hydroureter is noted. The right kidney has a slightly mottled appearance raising concern for pyelone phritis. 3. Bilateral nephrolithiasis. 4. Moderate hiatal hernia. Electronically signed by: Yesenia Perera MD 03/09/2024 02:24 AM CDT Due to temporary technical issues with the PACS/Fluency reporting system, reports are being signed by the in house radiologists without review as a courtesy to insure prompt reporting. The interpreting radiologist is fully responsible for the content of the report.
== END 2024-03-09 07:46 | disposition short-term general hospital (02) ==
LOC: ER 20:02
DX: N12 Tubulo-interstitial nephritis, not specified as acute or chronic (principal); R65.21 Severe sepsis with septic shock; Z96.0 Presence of urogenital implants; Z98.890 Other specified postprocedural states; Z87.442 Personal history of urinary calculi; Z11.52 Encounter for screening for COVID-19
CPT/HCPCS: 87040 ×2; 85025; 80048; 36415; 83735; 87205 ×2; 85610; 80076; 83605 ×2; 84484; 83880; 87804 ×2; 71250; 74176; 71045 ×3; 51702; 99291; 99292; 87811; J3480; J2001 ×2; J2543; J2270 ×2; P9047 ×2; J7050; J7030; 87077; 87186; 93005

== ENCOUNTER 2024-04-21 17:44 | Inpatient (IN) | payer OTHER ==
--- NOTE | 2024-04-21 19:55 | RAD REPORT ---
EXAM DESCRIPTION: [facility]04[facility]21/2024 7:33 pm CLINICAL HISTORY: COUGH COMPARISON: Abdomen 1 View (KUB) dated 04/01/2024; Chest Single View dated 03/09/2024; Chest Single Vi ew dated 03/08/2024; Chest Single View dated 03/08/2024 TECHNIQUE: Portable AP view of the chest. FINDINGS: The lungs are clear. No pneumothorax or effusion. The cardiomediastinal contours are unre markable. IMPRESSION: No acute cardiopulmonary process.
[2024-04-21] MEDS ORDERED: IPRATROPIUM BROM 0.5MG/2.5ML ONE (19:59)
[2024-04-21] MEDS ORDERED: LEVALBUTEROL 1.25 MG/3 ML NEB ONE (19:59)
[2024-04-21] MEDS ORDERED: ACETAMINOPHEN 500 MG TAB ONE (20:00)
[2024-04-21] MEDS ORDERED: NA CHLORIDE 0.9% 100 ML ONE (20:00)
[2024-04-21] MEDS ORDERED: NA CHLORIDE 0.9% 1,000 ML ONE ×2 (20:00→22:00)
[2024-04-21] MEDS: Meropenem 1000 MG/VIAL IV ONE (20:05)
[2024-04-21 20:07] LABS: Absolute Lymphocytes (CBC) 0.3 K/uL (0.7-4.9); Absolute Monocytes 0.9 K/uL (0.1-1.3); Absolute Neutrophil 12.6 K/uL (1.8-8.0); Basophils % 0.3 % (0-1.3); Hematocrit 39.4 % (39.6-49.0); Lymphocytes % 2.2 % (15.3-44.8); MCH 31.4 pg (27.0-35.0); MPV 7.9 fL (7.6-11.3); Monocytes % 6.6 % (3.3-12.3); Neutrophils % 90.9 % (41.7-73.7); Platelets 209 thou/uL (152-406); RBC Red Blood Cell Count 4.15 M/uL (4.33-5.43); Red Cell Distribution Width 14.9 % (12.1-15.2)
[2024-04-21 20:22] LABS: PT Prothrombin Time 12.8 SECONDS (9.5-12.5); PTT, Activated Partial Thromb 29.3 SECONDS (24.3-36.9); Protime INR 1.17
[2024-04-21 20:29] LABS: Albumin 3.2 g/dL (3.4-5.0); Albumin/Globulin Ratio 0.8 (1.1-1.8); Anion Gap 8.9 mEq/L (5.0-15.0); Potassium 3.9 mEq/L (3.5-5.1); Protein, Total 7.2 g/dL (6.4-8.2); Troponin High Sensitivity 3.2 pg/mL (<58.9)
[2024-04-21] MEDS ORDERED: MORPHINE 2 MG/ML SYR IV PRN (20:34)
[2024-04-21] MEDS ORDERED: ALBUTEROL 2.5 MG/3 ML NEB SOL NEB PRN (20:34)
[2024-04-21] MEDS ORDERED: ONDANSETRON 4 MG/2 ML VIAL IV PRN (20:34)
--- NOTE | 2024-04-21 20:47 | P.HP ---
Certification for Inpatient With expected LOS: >2 Midnights Patient will require the following post-hospital care: Home Health Services Practitioner: I am a practitioner with admitting privileges, knowledge of patient current condition, hospital course, and medical plan of care. Services: Services provided to patient in accordance with Admission requirements found in Title 42 Section 412.3 of the Code of Federal Regulations Patient History Date of Service: 04/21/24 Reason for admission: Fever and dysuria History of Present Illness: 74-year-old male with past medical history of nephrolithiasis status post right obstructing calculus requiring right renal pelvic stent placement 2 months ago with complicated Pseudomonas UTI resulting in septic shock and requiring transfer to [facility] with management with Cipro IV for 3 days and then discharged home with 7 days of Cipro. Since after the antibiotics regimen patient was initially fine for about a month after which she started having recurrent bouts of fever and chills. He still continues to have new onset dysuria since the last 5 days. He was seen by urology Dr. Saha in the office today and sent to the emergency room because of recurrent fevers. On arrival in the ED patient was noted to be tachycardic at 120s as well as elevated temp of 101 100.4. WBC elevated at 13.5, urine culture from for is growing Pseudomonas sensitive to quinolones and meropenem. Patient is being admitted for multidrug-resistant UTI with acute sepsis Allergies [id number] Reductase Inhibitor Allergy (Verified 04/16/24 14:05) joint pain Home Medications: Acetaminophen [Tylenol] 3 tab PO QID 02/15/24 Glucos Sul 2Kcl/MSM/Chond/C/Mn [Glucosamine Chondroitin Cap] 1 each PO DAILY 02/15/24 L.acidoph,Paracasei, B.lactis [Probiotic] 1 each PO DAILY 02/15/24 Multivitamin 1 each PO DAILY 02/15/24 Omeprazole 20 mg PO BEDTIME 02/15/24 Saw [place] 160 mg PO DAILY 02/15/24 Tamsulosin [Flomax*] 0.4 mg PO BEDTIME 02/15/24 - Past Medical/Surgical History -: Bilateral renal calculi Right ureteral stent Complicated Pseudomonas UTI -: Right ureteral stent - Social History Smoking Status: Never smoker Smoking therapy provided: No Patient receptive to therapy: No Alcohol use: No CD- Drugs: No Caffeine use: No Place of Residence: Home Review of Systems 10-point ROS is otherwise unremarkable General: Fever, Chills, Malaise Gastrointestinal: Nausea, Vomiting Genitourinary: Dysuria Neurological: Weakness Physical Examination - Physical Exam General: Alert, In no apparent distress, Oriented x3 HEENT: Atraumatic, Normocephalic, PERRLA Neck: Supple, 2+ carotid pulse no bruit, JVD not distended Respiratory: Clear to auscultation bilaterally, Normal air movement Cardiovascular: Normal pulses, Regular rate/rhythm, Normal S1 S2 Gastrointestinal: Normal bowel sounds, Soft and benign, Non-distended Musculoskeletal: No clubbing, No swelling Integumentary: No rashes, No breakdown Neurological: Normal gait, Normal speech, Normal strength at 5/5 x4 extr - Studies Laboratory Data (last 24 hrs) 04/21/24 04/21/24 04/21/24 19:56 19:56 19:56 WBC 13.80 H Hgb 13.0 L Hct 39.4 L Plt Count 209 PT 12.8 H INR 1.17 APTT 29.3 Sodium 133 L Potassium 3.9 BUN 23 H Creatinine 0.99 Glucose 113 H Total Bilirubin 1.0 AST 19 ALT 43 Alkaline Phosphatase 89 Assessment and Plan - Problems (Diagnosis) (1) UTI (urinary tract infection) Current Visit: Yes Status: Acute (2) Sepsis Current Visit: Yes Status: Acute - Plan Impression Multidrug-resistant due to Pseudomonas UTIwith indwelling ureteral stent Acute sepsis Nephrolithiasis Plan will admit to inpatient status Start empirical antibiotics with ertapenem, since previous failure with Cipro Follow repeat urine culture Gentle IV fluid with normal saline Tylenol and Motrin as needed Monitor WBC trend Subcutaneous heparin for DVT prophylaxis Case management consult patient might need home infusion of antibiotics for at least a 14-day course of therapy Follow blood culture Possible hospital stay for more than 48 - Advance Directives Does patient have a Living Will: Yes Does patient have a Durable POA for Healthcare: Yes Physician Review: Patient Assessed, Agree with Above Assessment and Plan Time Spent Managing Pts Care (In Minutes): 65
[2024-04-21] MEDS ORDERED: HYDRALAZINE HCL 20 MG/ML VIAL IV PRN (20:48)
[2024-04-21] MEDS ORDERED: LORAZEPAM 0.5 MG TABLET PO PRN (20:48)
[2024-04-21 21:00] LABS: SARS-CoV-2 Antigen CONTROL BLUE LINE VIS/BG OK; SARS-CoV-2 Antigen Rapid Res Negative (Negative)
--- NOTE | 2024-04-21 21:02 | EDPHYS ---
Physician Documentation [facility] Name: Zion Chung Age: 73 yrs Sex: Male : 1950 Arrival Date: 04/21/2024 Time: 17:44 Bed 6 Private MD: ED Physician Stefania Dang HPI: 04/21 17:54 This 73 yrs old Male presents to ER via Unassigned with complaints of Sent By Dr paulo Saha to ED for admission. 17:55 Patient presents to ED after being referred by urology, DR Saha, with concern for cp pseudomonas urine infection. Patient with HX of renal stent placement. Presents febrile, tachycardic and also complains cough. Historical: - PMHx: 18:20 Kidney stones; urinary retention; bp - PSHx: 18:20 renal stent; bp - Immunization history:: Adult Immunizations up to date. - Infectious Disease History:: Denies. - Social history:: Smoking status: Patient denies any tobacco usage or history of. ROS: 17:58 Constitutional: Positive for chills, fever, cp 17:58 Constitutional: HX per hpi cp 17:58 Cardiovascular: Negative for chest pain, 17:58 Abdomen/GI: Negative for vomiting, diarrhea, constipation, 17:58 Back: Positive for flank pain, 17:58 All other systems are negative, Exam: 18:00 Constitutional: The patient appears in no acute distress, alert, awake, cp non-diaphoretic, well developed, well nourished, obviously ill, uncomfortable, 18:00 Head/Face: Normocephalic, atraumatic. cp 18:00 Eyes: Periorbital structures: appear normal, Conjunctiva: normal, no exudate, no injection, Sclera: no appreciated abnormality, Lids and lashes: appear normal, bilaterally, 18:00 ENT: External ear(s): are unremarkable, Nose: is normal, Mouth: Lips: dry, Oral mucosa: pink and intact, moist, Posterior pharynx: Airway: no evidence of obstruction, patent, 18:00 Chest/axilla: Inspection: normal, 18:00 Cardiovascular: Rate: tachycardic, Rhythm: regular, 18:00 Respiratory: the patient does not display signs of respiratory distress, Respirations: normal, no use of accessory muscles, no retractions, labored breathing, is not present, Breath sounds: bronchial sounds, that are mild, are heard diffusely, wheezing: is not appreciated, 18:00 Abdomen/GI: Inspection: abdomen appears normal, Bowel sounds: active, all quadrants, Palpation: abdomen is soft and non-tender, in all quadrants, 18:00 Back: CVA tenderness, is absent, 18:00 Neuro: Orientation: to person, place \T\ time. Mentation: is normal, Motor: moves all fours, strength is normal, Gait: is steady, 19:55 ECG was reviewed by the Attending Physician. Vital Signs: 18:19 BP 143 / 88; Pulse 131; Resp 20; Temp 102.7; Pulse Ox 100% ; Weight 57.15 kg; bp 19:34 BP 127 / 74; Pulse 122; Resp 18; Temp 101.1(O); Pulse Ox 92% on R/A; Pain 3/10; ss 20:00 BP 108 / 76; Pulse 115; Resp 18; Pulse Ox 97% on 2 lpm NC; km8 21:00 BP 120 / 73; Pulse 108; Resp 20; Pulse Ox 100% on 2 lpm NC; km8 21:30 BP 118 / 65; Pulse 112; Resp 18; Pulse Ox 98% on 2 lpm NC; km8 22:00 BP 109 / 71; Pulse 109; Resp 18; Temp 100.3(A); Pulse Ox 98% on 2 lpm NC; km8 19:34 Pain Scale: Adult ss 19:34 placed patient on 2L NC LUBNA [place] notified ss [place] Coma Score: 19:55 Eye Response: spontaneous(4). Motor Response: obeys commands(6). Verbal Response: km8 oriented(5). Total: 15. MDM: 18:18 Patient medically screened. 21:05 Data reviewed: vital signs, nurses notes, lab test result(s), EKG, radiologic studies, plain films, and as a result, I will admit patient. 21:05 Management of patient was discussed with the following: Hospitalist: DR Woodson will cp admit after discussion. 21:05 I considered the following discharge prescriptions or medication management in the emergency department Medications were administered in the Emergency Department. See MAR. 21:05 Differential diagnosis: viral Infection, bacterial infection, pneumonia UTI, sepsis. cp Independent interpretation of the following test(s) in the Emergency Department EKG: See my EKG interpretation above. Counseling: I had a detailed discussion with the patient and/or guardian regarding the historical points, exam findings, and any diagnostic results supporting the discharge/admit diagnosis, lab results, radiology results. Response to treatment: the patient's symptoms have mildly improved after treatment. 21:40 ED course: sepsis reevaluation done. cp 04/21 18:23 Order name: Blood Culture Adult (2) cp / 18:23 Order name: CBC with Diff cp / 20:56 Interpretation: Normal except: WBC 13.80; RBC 4.15; HGB 13.0; HCT 39.4; JEANA% 90.9; LYM% cp 2.2; NEUT A 12.6; LYMA 0.3. 04/21 18:23 Order name: CMP; Complete Time: 20:55 cp / 20:56 Interpretation: Normal except: NA 133; GLUC 113; BUN 23; GFR 81; CA 11.0; ALB 3.2; GLOB cp 4.0; A/G 0.8. 04/21 18:23 Order name: Lactate w/ 2H reflex if indic.; Complete Time: 20:55 cp 04/21 20:58 Interpretation: Reviewed. cp / 18:23 Order name: Protime (+inr); Complete Time: 20:55 cp 04/21 18:23 Order name: Ptt, Activated; Complete Time: 20:55 cp 04/21 18:23 Order name: Troponin HS; Complete Time: 20:55 cp 04/21 20:58 Interpretation: Reviewed. cp / 18:23 Order name: SARS RAPID cp 04/21 18:23 Order name: Influenza Screen (a \T\ B) cp 04/21 20:42 Order name: CBC with Automated Diff EDMS 04/21 20:42 Order name: CBC with Automated Diff EDMS 04/21 20:42 Order name: Comprehensive Metabolic Panel EDMS 04/21 20:42 Order name: Comprehensive Metabolic Panel EDMS 04/21 20:42 Order name: Urine Culture EDMS 04/21 20:59 Order name: Urinalysis W/Microscopic cp 04/21 22:15 Order name: Manual Differential EDMS 04/21 22:16 Order name: Urinalysis W/Microscopic EDMS 04/21 18:23 Order name: Chest Single View XRAY; Complete Time: 20:04 cp 04/21 20:04 Interpretation: Report review. cp 04/21 18:23 Order name: EKG; Complete Time: 18:24 cp 04/21 18:23 Order name: Accucheck; Complete Time: 20:15 cp 04/21 18:23 Order name: Cardiac monitoring; Complete Time: 20:15 cp 04/21 18:23 Order name: EKG - Nurse/Tech; Complete Time: 20:15 cp 04/21 18:23 Order name: IV Saline Lock - Large Bore; Complete Time: 20:15 cp 06 18:23 Order name: Labs collected and sent; Complete Time: 20:15 cp 04/21 18:23 Order name: O2 Per Protocol; Complete Time: 20:15 cp 04/21 18:23 Order name: O2 Sat Monitoring; Complete Time: 20:15 cp 04/21 18:23 Order name: Vital Signs; Complete Time: 20:15 cp EC:55 Rate is 113 beats/min. Rhythm is regular. MI interval is normal. QRS interval is cp normal. QT interval is normal. T waves are Inverted in lead aVR. Interpreted by me. Reviewed by me. Administered Medications: 19:13 CANCELLED (Physician Discretion): cefepime1 grams IVPB at 200 ml/hr once over 30 mins; cp (mix in NS 100 mL) 20:15 Drug: NS 0.9% IV 1000 ml IV at 999 ml/hr Per protocol Route: IV; Rate: 999 ml/hr; Site: [facility]; 22:00 Follow up: IV Status: Completed infusion; IV Intake: 1000ml 20:15 Drug: Levalbuterol Inhalation 1.25 mg Inhalation once Route: Inhalation; 8 20:15 Drug: Ipratropium Inhalation Aerosol 0.5 mg Inhalation once Route: Inhalation; 8 20:16 Drug: Acetaminophen PO 1000 mg PO once Route: PO; km8 22:12 Follow up: Response: No adverse reaction; Temperature is decreased 20:23 Drug: Meropenem IV 1 grams IV at calculated rate once; (mix in NS 100 mL) Route: IV; km Rate: calculated rate; Site: right forearm; 22:05 Follow up: IV Status: Completed infusion; IV Intake: 100ml Disposition Summary: 04/21/24 21:01 Hospitalization Ordered Notes: Hospitalization Status: Inpatient Admission(04/21/24 21:01) cp Provider: Liliya Woodson(04/21/24 21:01) cp Location: Telemetry/MedSurg (Inpatient)(04/21/24 21:01) cp Condition: Stable(04/21/24 21:01) cp Problem: new(04/21/24 21:01) cp Symptoms: have improved(04/21/24 21:01) cp Bed/Room Type: Standard(04/21/24 21:01) cp Room Assignment: 229(04/21/24 21:59) rv1 Diagnosis - Sepsis due to other Gram-negative organisms cp - UTI/ Urinary tract infection, site not specified(04/21/24 21:01) cp Forms: - Medication Reconciliation Form cp - SBAR form cp - Leadership Thank You Letter cp Signatures: Dispatcher [employer] EDMS Juan C Disla PA PA cp Aden Bolden, RN RN bp Kemi Khan rv1 Shaila Dorsey RN RN km8 Corrections: (The following items were deleted from the chart) 18:24 18:24 BLOOD CULTURE*+BA.LAB.BRZ ordered. EDMS EDMS 18:24 18:24 CBC+H.LAB.BRZ ordered. EDMS EDMS 18:24 18:24 COMPREHENSIVE METABOLIC PANEL+C.LAB.BRZ ordered. EDMS EDMS 18:24 18:24 LACTATE+C.LAB.BRZ ordered. EDMS EDMS 18:24 18:24 PROTIME (+INR)+COAG.LAB.BRZ ordered. EDMS EDMS 18:24 18:24 PTT, ACTIVATED+COAG.LAB.BRZ ordered. EDMS EDMS 18:24 18:24 Troponin High Sensitivity+C.LAB.BRZ ordered. EDMS EDMS 18:24 18:24 SARS-COV-2 Antigen Rapid+I.LAB.BRZ ordered. EDMS EDMS 18:24 18:24 Influenza Screen (A \T\ B)+BA.LAB.BRZ ordered. EDMS EDMS 19:13 18:39 Cefepime IVPB 1 grams IVPB at 200 ml/hr once over 30 mins; (mix in NS 100 mL) cp ordered. cp 19: 19:21 Inpatient Admission cp cp 19: 19:21 Liliya Woodson cp cp : 19:21 Telemetry/MedSurg (Inpatient) cp cp : 19:21 Fair cp cp : 19:21 new cp cp : 19:21 have improved cp cp : 19:21 Standard cp cp : 19:21 cp cp 19: 19:21 UTI/ Urinary tract infection, site not specified cp cp 20:56 20:55 Normal except: WBC 13.80; RBC 4.15; HGB 13.0; HCT 39.4. cp cp 21:02 21:01 cp rv1 21:54 21:02 401 rv1 rv1 21:59 21:54 rv1 rv1
--- NOTE | 2024-04-21 21:02 | ER ---
Nurse's Notes [facility] Name: Zion Chung Age: 73 yrs Sex: Male : 1950 Arrival Date: 04/21/2024 Time: 17:44 Bed 6 Private MD: Diagnosis: Sepsis due to other Gram-negative organisms;UTI/ Urinary tract infection, site not specified Presentation: 04/21 18:19 Chief complaint: SENT BY DR BRYSON FOR RECURRENT PSEUDOMONAS RENAL INFECTION, R FLANK bp PAIN. Coronavirus screen: At this time, the client does not indicate any symptoms associated with coronavirus-19. Ebola Screen: No symptoms or risks identified at this time. Initial Sepsis Screen: Does the patient meet any 2 criteria? Temp <36.0*C (96.8*F)) or > 38.3*C (100.9*F). HR > 90 bpm. Does the patient have a suspected source of infection? No. Patient's initial sepsis screen is negative. Risk Assessment: Do you want to hurt yourself or someone else? Patient reports no desire to harm self or others. Onset of symptoms is unknown. 18:19 Method Of Arrival: Ambulatory bp 18:19 Acuity: [place] 2 bp Triage Assessment: 18:20 General: Appears distressed, uncomfortable, Behavior is appropriate for age. Pain: bp Complains of pain in right flank. : Reports pain in right flank(s). Historical: - PMHx: 18:20 Kidney stones; urinary retention; bp - PSHx: 18:20 renal stent; bp - Immunization history:: Adult Immunizations up to date. - Infectious Disease History:: Denies. - Social history:: Smoking status: Patient denies any tobacco usage or history of. Screenin:55 [facility] ED Fall Risk Assessment (Adult) History of falling in the last 3 months, km8 including since admission No falls in past 3 months (0 pts) Confusion or Disorientation No (0 pts) Intoxicated or Sedated No (0 pts) Impaired Gait No (0 pts) Mobility Assist Device Used No (0 pt) Altered Elimination No (0 pt) Score/Fall Risk Level 0 - 2 = Low Risk Oriented to surroundings, Maintained a safe environment, Educated pt \T\ family on fall prevention, incl call for assistance when getting out of bed, Assessed \T\ reinforced patient's understanding of fall precautions. Abuse screen: Denies threats or abuse. Denies injuries from another. Nutritional screening: No deficits noted. Tuberculosis screening: No symptoms or risk factors identified. Assessment: 19:55 General: Appears in no apparent distress. ill, Behavior is calm, cooperative, km8 appropriate for age. Pain: Complains of pain in right flank Pain currently is 4 out of 10 on a pain scale. Neuro: Level of Consciousness is awake, alert, obeys commands, Oriented to person, place, time, situation. Cardiovascular: Denies chest pain, shortness of breath, Patient's skin is warm and dry. Respiratory: Airway is patent Respiratory effort is even, unlabored, Respiratory pattern is regular, symmetrical. GI: Reports lower abdominal pain. : No signs and/or symptoms were reported regarding the genitourinary system. EENT: No signs and/or symptoms were reported regarding the EENT system. Derm: Skin is intact, is healthy with good turgor, Skin is dry, Skin is pink, warm \T\ dry. normal, Skin temperature is warm. Musculoskeletal: No signs and/or symptoms reported regarding the musculoskeletal system. Range of motion: intact in all extremities. Vital Signs: 18:19 BP 143 / 88; Pulse 131; Resp 20; Temp 102.7; Pulse Ox 100% ; Weight 57.15 kg; bp 19:34 BP 127 / 74; Pulse 122; Resp 18; Temp 101.1(O); Pulse Ox 92% on R/A; Pain 3/10; ss 20:00 BP 108 / 76; Pulse 115; Resp 18; Pulse Ox 97% on 2 lpm NC; km8 21:00 BP 120 / 73; Pulse 108; Resp 20; Pulse Ox 100% on 2 lpm NC; km8 21:30 BP 118 / 65; Pulse 112; Resp 18; Pulse Ox 98% on 2 lpm NC; km8 22:00 BP 109 / 71; Pulse 109; Resp 18; Temp 100.3(A); Pulse Ox 98% on 2 lpm NC; km8 19:34 Pain Scale: Adult ss 19:34 placed patient on 2L NC Juan C P, PA notified ss [place] Coma Score: 19:55 Eye Response: spontaneous(4). Motor Response: obeys commands(6). Verbal Response: km8 oriented(5). Total: 15. ED Course: 17:49 Patient arrived in ED. mg5 17:51 Juan C Disla PA is PHCP. cp 17:51 Stefania Dang MD is Attending Physician. cp 18:20 Triage completed. bp 18:21 Arm band placed on. bp 19:20 Liliya Woodson MD is Hospitalizing Provider. cp 19:35 Chest Single View XRAY In Process Unspecified. EDMS 19:35 Patient has correct armband on for positive identification. Placed in gown. Bed in low ss position. Call light in reach. Side rails up X2. teletypesetter monitor on. Pulse ox on. NIBP on. Warm blanket given. 19:35 Oxygen administration via nasal cannula \T\ 2L/min. ss 19:55 Provided Education on: call light use. km8 19:57 Initial lab(s) drawn, by me, sent to lab. First set of blood cultures drawn by me, EKG km8 done, by ED staff, reviewed by Juan C CALVO COVID swab sent to lab. Flu and/or RSV swab sent to lab. 19:57 Inserted saline lock: 20 gauge in right forearm, using aseptic technique. Blood km8 collected. 20:15 Shaila Dorsey, RN is Primary Nurse. km8 20:15 SARS RAPID Sent. km8 20:15 Influenza Screen (a \T\ B) Sent. km8 20:15 Troponin HS Sent. km8 20:15 CBC with Diff Sent. km8 20:15 CMP Sent. km8 20:15 Lactate w/ 2H reflex if indic. Sent. km8 20:15 Protime (+inr) Sent. km8 20:15 Ptt, Activated Sent. km8 21:00 Liliya Woodson MD is Hospitalizing Provider. cp 22:10 No provider procedures requiring assistance completed. Patient admitted, IV remains in km8 place. Administered Medications: 19:13 CANCELLED (Physician Discretion): cefepime1 grams IVPB at 200 ml/hr once over 30 mins; cp (mix in NS 100 mL) 20:15 Drug: NS 0.9% IV 1000 ml IV at 999 ml/hr Per protocol Route: IV; Rate: 999 ml/hr; Site: [facility] right forearm; 22:00 Follow up: IV Status: Completed infusion; IV Intake: 1000ml km8 20:15 Drug: Levalbuterol Inhalation 1.25 mg Inhalation once Route: Inhalation; km8 20:15 Drug: Ipratropium Inhalation Aerosol 0.5 mg Inhalation once Route: Inhalation; km8 20:16 Drug: Acetaminophen PO 1000 mg PO once Route: PO; km8 22:12 Follow up: Response: No adverse reaction; Temperature is decreased km8 20:23 Drug: Meropenem IV 1 grams IV at calculated rate once; (mix in NS 100 mL) Route: IV; km8 Rate: calculated rate; Site: right forearm; 22:05 Follow up: IV Status: Completed infusion; IV Intake: 100ml km8 Medication: 19:55 VIS not applicable for this client. km8 Intake: 22:00 IV: 1000ml; Total: 1000ml. km8 22:05 IV: 100ml; Total: 1100ml. km8 Outcome: 19:21 Decision to Hospitalize by Provider. cp 21:01 Decision to Hospitalize by Provider. cp 22:20 Admitted to Med/surg accompanied by nurse, via stretcher, room 229, with oxygen, with km8 chart, 22:20 Condition: stable 22:20 Instructed on the need for admit, Demonstrated understanding of instructions, 22:25 Patient left the ED. km8 Signatures: Dispatcher [employer] EDMS Candice Ng, RN RN ss Juan C Disla PA PA Aden Browne, RN RN Courtney Miranda mg5 Shaila Dorsey RN RN km8 Corrections: (The following items were deleted from the chart) 18:27 18:19 BP 143 / 88; Pulse 131bpm; Resp 20bpm; Pulse Ox 100%; Temp 102.7F; bp bp
[2024-04-21 22:12] LABS: Band Neutrophils 7 % (0-1); Blood Morphology Comment NOT SEEN (NOT SEEN); Differential Total Cells Count 100; Lymphocytes 3 % (15-42); Monocytes 4 % (0-10); Segmented Neutrophils 86 % (40-80)
[2024-04-21 22:14] LABS: Platelet Estimate ADEQ
[2024-04-21 22:14] LABS: Specific Gravity 1.015 (1.005-1.030); Urine Bilirubin NEGATIVE (Negative); Urine Blood 2+ (Negative); Urine Clarity Extremely Turbid (Clear); Urine Color Yellow (Yellow); Urine Glucose NEGATIVE (Negative); Urine Ketones 1+ (Negative); Urine Protein 1+ (Negative); Urine Urobilinogen Normal (Normal)
[2024-04-21 22:15] LABS: Sqamous Epithelial None Seen /HPF (None Seen); Urine Bacteria 20-50 /HPF (<20); Urine Culture Reflex Order REFLEXED; Urine Micro Reflex YN NO BILL MICROSCOPIC; Urine Mucus Slight /HPF (None Seen); Urine Nitrite NEGATIVE (Negative); Urine RBC >50 /HPF (None Seen); Urine WBC >50 /HPF (<5)
[2024-04-21] MEDS: ERTAPENEM SODIUM 1 GM VIAL IVPB SCH (22:15)
[2024-04-21] MEDS: PANTOPRAZOLE 40MG TABLET PO SCH (22:47)
[2024-04-21] MEDS: NA CHLORIDE 0.9% 1,000 ML IV SCH (22:47)
[2024-04-21] MEDS: TAMSULOSIN 0.4 MG SR CAP PO SCH (22:48)
[2024-04-21] MEDS: NA CHLORIDE 0.9% 100 ML ONE (23:11)
[2024-04-21] MEDS: ERTAPENEM NA 1 GM in NA CHLORIDE 0.9% 100 ML IVPB SCH (23:14)
[2024-04-22] MEDS: ACETAMINOPHEN 500 MG TAB PO PRN (01:02)
[2024-04-22 01:59] VITALS: BMI 23.9
[2024-04-22] MEDS: MORPHINE 4 MG/ML SYR IV PRN (02:46)
[2024-04-22 07:37] LABS: Absolute Lymphocytes (CBC) 0.7 K/uL (0.7-4.9); Absolute Monocytes 1.2 K/uL (0.1-1.3); Absolute Neutrophil 8.7 K/uL (1.8-8.0); Basophils % 0.3 % (0-1.3); Hemoglobin 11.5 g/dL (13.6-17.9); Lymphocytes % 6.8 % (15.3-44.8); MCH 32.2 pg (27.0-35.0); MCHC 33.9 g/dL (32.0-36.0); MCV 95.1 fL (80-100); MPV 7.8 fL (7.6-11.3); Monocytes % 10.9 % (3.3-12.3); Platelets 198 thou/uL (152-406); RBC Red Blood Cell Count 3.58 M/uL (4.33-5.43); Red Cell Distribution Width 14.9 % (12.1-15.2)
[2024-04-22 07:39] LABS: Albumin 2.6 g/dL (3.4-5.0); Albumin/Globulin Ratio 0.7 (1.1-1.8); Bilirubin Total 0.7 mg/dL (0.2-1.0); Globulin 3.5 g/dL (2.3-3.5); Protein, Total 6.1 g/dL (6.4-8.2)
[2024-04-22] MEDS: PNEUMOCOCCAL VACCINE 0.5 ML IMVAC ONE (09:00)
[2024-04-22] MEDS: ENOXAPARIN 40 MG/0.4 ML SQ SCH (09:30)
[2024-04-22] MEDS: LACTOBACILLUS/ACIDOPHILUS TAB PO SCH (09:30)
[2024-04-22] MEDS: PANTOPRAZOLE 40MG TABLET PO SCH (09:49)
[2024-04-22] MEDS: TAMSULOSIN 0.4 MG SR CAP PO SCH (09:49)
--- NOTE | 2024-04-22 13:08 | P.PN ---
Subjective Date of Service: 04/22/24 Chief Complaint: Fever and dysuria Pt is resting comfortably in bed. He has difficulty hearing. Pt is getting ertapenem. No other complaints. Review of Systems General: Unremarkable Eyes: Unremarkable ENT: Unremarkable Respiratory: Unremarkable Cardiovascular: Unremarkable Gastrointestinal: Unremarkable Genitourinary: Unremarkable Musculoskeletal: Unremarkable Integumentary: Unremarkable Neurological: Unremarkable Lymphatics: Unremarkable Physical Examination - Vital Signs Temperature: 101.2 F Blood Pressure: 106/69 Pulse: 96 Respirations: 17 Pulse Ox (%): 94 - Physical Exam General: Alert, In no apparent distress, Oriented x3 HEENT: Atraumatic, Normocephalic, PERRLA Neck: Supple, 2+ carotid pulse no bruit, JVD not distended Respiratory: Clear to auscultation bilaterally, Normal air movement Cardiovascular: No edema, Normal pulses, Regular rate/rhythm, Normal S1 S2 Capillary refill: <2 Seconds Gastrointestinal: Normal bowel sounds, Soft and benign, Non-distended Musculoskeletal: No clubbing, No swelling, No contractures Integumentary: No rashes, No breakdown, No significant lesion Neurological: Normal speech, Normal strength at 5/5 x4 extr, Normal tone, Sensation intact Lymphatics: No axilla or inguinal lymphadenopathy - Studies Laboratory Data (last 24 hrs) 04/21/24 04/21/24 04/21/24 19:56 19:56 19:56 WBC 13.80 H Hgb 13.0 L Hct 39.4 L Plt Count 209 PT 12.8 H INR 1.17 APTT 29.3 Sodium 133 L Potassium 3.9 BUN 23 H Creatinine 0.99 Glucose 113 H Total Bilirubin 1.0 AST 19 ALT 43 Alkaline Phosphatase 89 Microbiology Data (last 24 hrs): 04/21/24 20:15 Nasopharnyx Influenza Type A Antigen Screen - Final 04/21/24 20:15 Nasopharnyx Influenza Type B Antigen Screen - Final Assessment And Plan - Plan Sepsis 2/2 multidrug-resistant due to Pseudomonas UTIwith indwelling ureteral stent: Will continue ertapenem. F/u Urine cx. He failed outpt cipro. Consulted ID Nephrolithiasis: He is a pt of Dr. Constantino Tavares. Will f/u with Urology in clinic. DVT ppx: lovenox DIspo: Pending hospital course Physician Review: Patient Assessed, Agree with Above Assessment and Plan
--- NOTE | 2024-04-22 13:19 | EKG ---
Test Date: 2024-04-21 Test Time: 19:45:08 Surg Tech: IKE MEASUREMENT RESULTS: Intervals: Rate: 113 MD: 128 QRSD: 90 QT: 296 QTc: 406 Woodson: P: 62 MD: 128 QRS: 36 T: 53 INTERPRETIVE STATEMENTS: Sinus tachycardia with premature atrial complexes Otherwise normal ECG Compared to ECG 03/08/2024 20:51:32 No significant changes Electronically Signed On 04-22-24 13:17:54 CDT by Jluis Greenfield
[2024-04-22] MEDS: Meropenem 500 MG in NA CHLORIDE 0.9% 100 ML IV SCH (16:02)
[2024-04-22 21:27] VITALS: O2SAT 95
[2024-04-23 07:51] LABS: Absolute Eosinophils 0.1 K/uL (0-0.5); Absolute Lymphocytes (CBC) 0.8 K/uL (0.7-4.9); Absolute Neutrophil 8.5 K/uL (1.8-8.0); Basophils % 0.3 % (0-1.3); Eosinophils % 0.6 % (0-4.4); Hematocrit 35.6 % (39.6-49.0); Hemoglobin 11.8 g/dL (13.6-17.9); Lymphocytes % 7.5 % (15.3-44.8); MCH 31.4 pg (27.0-35.0); MCHC 33.2 g/dL (32.0-36.0); MCV 94.5 fL (80-100); MPV 8.1 fL (7.6-11.3); Monocytes % 9.9 % (3.3-12.3); Neutrophils % 81.7 % (41.7-73.7); Platelets 193 thou/uL (152-406); RBC Red Blood Cell Count 3.77 M/uL (4.33-5.43); Red Cell Distribution Width 14.7 % (12.1-15.2)
[2024-04-23 08:06] LABS: Anion Gap 6.7 mEq/L (5.0-15.0); Potassium 3.7 mEq/L (3.5-5.1)
[2024-04-23] MEDS ORDERED: TAMSULOSIN 0.4 MG SR CAP PO SCH (09:00)
[2024-04-23] MEDS ORDERED: PANTOPRAZOLE 40MG TABLET PO SCH (09:00)
[2024-04-23] MEDS: PNEUMOCOCCAL VACCINE 0.5 ML IMVAC ONE (11:16)
--- NOTE | 2024-04-23 13:44 | P.PN ---
Subjective Date of Service: 04/23/24 Chief Complaint: Fever and dysuria Pt is resting comfortably in bed. He has difficulty hearing. Pt is getting merrem. Waiting for further recommendation from Urology. No other complaints. Review of Systems General: Unremarkable Eyes: Unremarkable ENT: Unremarkable Respiratory: Unremarkable Cardiovascular: Unremarkable Gastrointestinal: Unremarkable Genitourinary: Unremarkable Musculoskeletal: Unremarkable Integumentary: Unremarkable Neurological: Unremarkable Lymphatics: Unremarkable Physical Examination - Vital Signs Temperature: 100.7 F Blood Pressure: 110/66 Pulse: 97 Respirations: 18 Pulse Ox (%): 91 - Physical Exam General: Alert, In no apparent distress, Oriented x3 HEENT: Atraumatic, Normocephalic, PERRLA Neck: Supple, 2+ carotid pulse no bruit Respiratory: Clear to auscultation bilaterally, Normal air movement Cardiovascular: No edema, Normal pulses, Regular rate/rhythm, Normal S1 S2 Capillary refill: <2 Seconds Gastrointestinal: Normal bowel sounds, Soft and benign, Non-distended Musculoskeletal: No clubbing, No swelling Integumentary: No breakdown, No significant lesion, No tenderness/swelling Neurological: Normal speech, Normal strength at 5/5 x4 extr, Normal tone, Sensation intact Lymphatics: No axilla or inguinal lymphadenopathy Assessment And Plan - Plan Sepsis 2/2 multidrug-resistant due to Pseudomonas UTIwith indwelling ureteral stent: Will continue merrem. Previous urine cx resistant to zosyna nd cefepime. F/u Urine cx. He failed outpt cipro. Consulted ID Nephrolithiasis: He is a pt of Dr. Constantino Tavares. Will f/u with Urology in clinic. DVT ppx: lovenox DIspo: Pending hospital course Physician Review: Patient Assessed, Agree with Above Assessment and Plan
--- NOTE | 2024-04-23 13:44 | CON ---
Date of Consultation: 04/23/2024 History Of Present Illness: This is a 73-year-old male coming in with the nephrolithiasis, postobstr uctive calculus, history of nephrolithiasis, postobstructive right-sided calculi, status post stent p lacement. The patient had urinary tract infection complicated with the pseudomonas infection. The p atient was treated with Cipro and patient was transferred to [facility] in [facility] for sept ic shock, coming in with the low-grade fever, high white count. Denies any headache, nausea, or vomi ting. Still continued to have discomfort while he pees. He is being followed by urologist, Dr. Ry keyes. Past Medical History: Renal insufficiency, recurrent urinary tract infection, possible prostate enla rgement. Medications: Meropenem. See MAR for other medications. Allergies: STATIN. Social History: Nonsmoker. Nondrinker. Review of Systems: A 10-point review was performed. Physical Examination: General: This is a 73-year-old male, lying in bed, not in any acute cardiopulmonary distress. Vital Signs: Temperature 97, pulse 81, respirations 18, blood pressure 114/66. HEENT: Unremarkable. Neck: Supple. Lungs: Clear to auscultation. Heart: S1, S2. Regular. Abdomen: Soft. Bowel sounds present. Extremity: No edema. Laboratory Data: WBC 10.4 down from 13.8, hemoglobin 11.8, platelets are 193. Chemistry shows BUN o f 14, creatinine 0.6. Urine cultures are growing 10 to 100,000 gram-negative rods, sensitivity and s pecificity pending. Assessment And Plan: Recurrent urinary tract infection. Recommend to get a CT abdomen and pelvis wi th contrast to rule out any obstructive pattern. If MRI can be performed, we will recommend MRI. Ot herwise, CT scan with contrast of abdomen and pelvis will be recommended. Continue antibiotic for to cesar of 14 days. Rule out pyelonephritis. Rule out obstructive uropathy and cause of urinary tract i nfection. Thank you, Dr. Hays, for consult. NF/MODL Voice ID: [id number] Report ID: [id number]
--- NOTE | 2024-04-23 15:41 | RAD REPORT ---
EXAM DESCRIPTION: CT - Chest Abdomen Pelvis W Cont - 04/23/2024 3:13 pm CLINICAL HISTORY: Chest and abdomen pain. r/o obstructive uropathy COMPARISON: Chest Abd Pelvis Wo Con dated 03/09/2024; Stone Protocol dated 02/07/2024 TECHNIQUE: Approximately 100 mL nonionic IV contrast was administered to the patient. All CT scans are performed using dose optimization technique as appropriate and may include automated exposure control or mA/KV adjustment according to patient size. FINDINGS: Linear opacities in the posterior right upper lobe noted likely representing scarring. Mil [id number]-ui-[id number] atelectasis is present in the right lower lobe.The left lung is grossly clear.No pleura l or pericardial effusion.No intrathoracic adenopathy.Moderate hiatal hernia. The liver contains numerous low-density rounded lesions likely representing cysts. The spleen, pancre as, adrenal glands are unremarkable. Several calculi are present in the calices of the left kidney. P roximal and distal aspects of right double-J stent are in expected positioning. There is no calculus seen along the course of the stent. No significant hydronephrosis. Small calculi are seen in the cuca yanet of the right kidney inferiorly. Subtle striations involving the right kidney noted which could in dicate infection. No bowel obstruction, free air, free fluid or abscess. Prominent sigmoid diverticulosis coli without diverticulitis. Postsurgical changes are seen left inguinal region. Small fat containing right inguin al hernia. Prostate gland is mildly enlarged. No pathologic lymphadenopathy in the abdomen or pelvis. Advanced dextroscoliosis of the lumbar spine. IMPRESSION: Right double-J stent is in expected positioning alignment without evidence of obstructio n. No definitive stones seen along the course of the stent. Subtle striated appearance to the right r enal parenchyma is questionable for superimposed infection. Suggest correlation with urinalysis. Moderate hiatal hernia. Bilateral nephrolithiasis is present without hydronephrosis. Moderate stool throughout the colon. Sigmoid diverticulosis without diverticulitis. Mild prostate enlargement.
[2024-04-24 07:13] LABS: Absolute Eosinophils 0.1 K/uL (0-0.5); Absolute Lymphocytes (CBC) 0.9 K/uL (0.7-4.9); Absolute Monocytes 0.8 K/uL (0.1-1.3); Absolute Neutrophil 7.1 K/uL (1.8-8.0); Basophils % 0.4 % (0-1.3); Eosinophils % 0.7 % (0-4.4); Hematocrit 34.4 % (39.6-49.0); Hemoglobin 11.8 g/dL (13.6-17.9); Lymphocytes % 10.5 % (15.3-44.8); MCH 32.2 pg (27.0-35.0); MCHC 34.2 g/dL (32.0-36.0); MCV 94.1 fL (80-100); Monocytes % 8.9 % (3.3-12.3); Neutrophils % 79.5 % (41.7-73.7); Nucleated Red Blood Cells % 0.2 % (0-0); Platelets 218 thou/uL (152-406); RBC Red Blood Cell Count 3.66 M/uL (4.33-5.43); Red Cell Distribution Width 14.5 % (12.1-15.2)
[2024-04-24 07:21] LABS: Anion Gap 6.6 mEq/L (5.0-15.0); Potassium 3.6 mEq/L (3.5-5.1)
--- NOTE | 2024-04-24 10:57 | P.PN ---
Subjective Date of Service: 04/24/24 Chief Complaint: Fever and dysuria Pt is resting comfortably in bed. He has difficulty hearing. Pt is getting merrem. Waiting for further recommendation from Urology. CT abd shows bilateral nephrolithiasis without hydronephrosis. No other complaints. Review of Systems General: Unremarkable Eyes: Unremarkable ENT: Unremarkable Respiratory: Unremarkable Cardiovascular: Unremarkable Gastrointestinal: Unremarkable Genitourinary: Unremarkable Musculoskeletal: Unremarkable Integumentary: Unremarkable Neurological: Unremarkable Lymphatics: Unremarkable Physical Examination - Vital Signs Temperature: 98.5 F Blood Pressure: 116/69 Pulse: 78 Respirations: 16 Pulse Ox (%): 94 - Physical Exam General: Alert, In no apparent distress, Oriented x3 HEENT: Atraumatic, Normocephalic, PERRLA Neck: Supple, 2+ carotid pulse no bruit, JVD not distended Respiratory: Clear to auscultation bilaterally, Normal air movement Cardiovascular: No edema, Normal pulses, Regular rate/rhythm, Normal S1 S2 Capillary refill: <2 Seconds Gastrointestinal: Normal bowel sounds, Soft and benign, Non-distended Musculoskeletal: No clubbing, No swelling, No contractures Integumentary: No rashes, No breakdown, No significant lesion Neurological: Normal speech, Normal strength at 5/5 x4 extr, Normal tone Lymphatics: No axilla or inguinal lymphadenopathy Assessment And Plan - Plan Sepsis 2/2 multidrug-resistant due to Pseudomonas UTIwith indwelling ureteral stent: Will continue merrem. Previous urine cx resistant to zosyn and cefepime. F/u Urine cx. He failed outpt cipro. Consulted ID. CT abd shows bilateral hydronephrolithiasis without hydronephrosis. Nephrolithiasis: He is a pt of Dr. Constantino Tavares. Will f/u with Urology in clinic. DVT ppx: lovenox DIspo: Pending hospital course Physician Review: Patient Assessed, Agree with Above Assessment and Plan
--- NOTE | 2024-04-24 13:47 | PN ---
Date of Progress Note: 04/24/2024 Subjective: Patient lying in bed. No new acute event. Denies any headache, nausea, vomiting, chest pain, abdominal pain, constipation, or diarrhea. Objective: Vital Signs: Temperature 98, pulse 78, respirations 16, blood pressure 116/69. Lungs: Basal crackles. Heart: S1, S2. Regular. Abdomen: Soft, nontender. Bowel sounds present. Extremity: No edema. Laboratory Data: Urine culture is growing Pseudomonas aeruginosa with sensitivity to quinolones, cef epime, meropenem, Zosyn. Blood cultures done on April 21 are no growth. Assessment And Plan: Urinary tract infection with Pseudomonas aeruginosa and is sensitive to Cipro. We will recommend to switch patient to Cipro as well as patient's QT interval is normal and treat hi m for 2 weeks. Continue supportive care and monitor for signs of infection. Consider evaluation alex dickson urologist for recurrent urinary tract infection for possible obstructive pattern causing him to hav e recurrent infection. NF/MODL Voice ID: [id number] Report ID: [id number]
--- NOTE | 2024-04-24 14:10 | P.DS ---
Admission Date: 04/21/24 Discharge Date: 04/24/24 Disposition: ROUTINE DISCHARGE Discharge Condition: GOOD Reason for Admission: Fever and dysuria Brief History of Present Illness: 74-year-old male with past medical history of nephrolithiasis status post right obstructing calculus requiring right renal pelvic stent placement 2 months ago with complicated Pseudomonas UTI resulting in septic shock and requiring transfer to [facility] with management with Cipro IV for 3 days and then discharged home with 7 days of Cipro. Since after the antibiotics regimen patient was initially fine for about a month after which she started having recurrent bouts of fever and chills. He still continues to have new onset dysuria since the last 5 days. He was seen by urology Dr. Saha in the office today and sent to the emergency room because of recurrent fevers. On arrival in the ED patient was noted to be tachycardic at 120s as well as elevated temp of 101 100.4. WBC elevated at 13.5, urine culture from for is growing Pseudomonas sensitive to quinolones and meropenem. Patient is being admitted for multidrug-resistant UTI with acute sepsis Hospital Course: Pt is 74yo male with past medical history of nephrolithiasis status post right obstructing calculus requiring right renal pelvic stent placement 2 months ago with complicated Pseudomonas UTI resulting in septic shock and requiring transfer to [facility] with management with Cipro IV for 3 days and then discharged home with 7 days of Cipro. Pt was sent to the ER by his Urologist for iv antibiotics for complicated UTI. Pt failed outpt therapy with Ciprofloxacin. On admission, pt was tachycardic. We admitted him and started Ertapenem because prior urine cultures grew Pseudomonas resistant to zosyn and cefepime. We consulted ID who recommended CT abd to rule out obstructive uropathy. CT abd showed bilateral hydronephrolithiasis without hydronephrosis. Dr. Meeks recommended discharge with cipro for 1 week and follow up in clinic within a week for kidney stone removal. Pt was in NAD prior to discharge. Vital Signs/Physical Exam: Temp Pulse Resp BP Pulse Ox 98.7 F 93 H 20 113/68 93 04/24/24 12:32 04/24/24 12:32 04/24/24 12:32 04/24/24 12:32 04/24/24 12:32 Laboratory Data at Discharge: WBC 8.90 thou/uL (4.3-10.9) 04/24/24 06:00 Hgb 11.8 g/dL (13.6-17.9) L 04/24/24 06:00 Hct 34.4 % (39.6-49.0) L 04/24/24 06:00 Plt Count 218 thou/uL (152-406) 04/24/24 06:00 PT 12.8 SECONDS (9.5-12.5) H 04/21/24 19:56 INR 1.17 04/21/24 19:56 APTT 29.3 SECONDS (24.3-36.9) 04/21/24 19:56 Sodium 135 mEq/L (136-145) L 04/24/24 06:00 Potassium 3.6 mEq/L (3.5-5.1) 04/24/24 06:00 BUN 15 mg/dL (7-18) 04/24/24 06:00 Creatinine 0.79 mg/dL (0.70-1.30) 04/24/24 06:00 Glucose 109 mg/dL (74-106) H 04/24/24 06:00 Total Bilirubin 0.7 mg/dL (0.2-1.0) 04/22/24 07:05 AST 13 U/L (15-37) L 04/22/24 07:05 ALT 35 U/L (16-61) 04/22/24 07:05 Alkaline Phosphatase 79 U/L (45-117) 04/22/24 07:05 Home Medications: Omeprazole 20 mg PO DAILY 02/15/24 Tamsulosin [Flomax*] 0.4 mg PO BEDTIME 02/15/24 Ciprofloxacin HCl [Cipro 500 MG Tablet] 500 mg PO BID 7 Days #14 tab 04/24/24 New Medications: Ciprofloxacin HCl [Cipro 500 MG Tablet] 500 mg PO BID 7 Days #14 tab Physician Discharge Instructions: Continue ad adamaris activity as tolerated. Take Cipro 500mg po BID for 1 week. Follow up with Dr. Constantino Tavares on Sunday for the procedure. Take home meds as prescribed. Follow up with PCP in 2 weeks.. Diet: AHA Activity: Ad adamaris Followup: Carissa Kim NP [Primary Care Provider] -
[2024-04-24 16:42] VITALS: BP 126/74; TEMP 98
== END 2024-04-24 05:25 | disposition home or self-care (01) | DRG 872 ==
LOC: ER 17:44 → ERHOLD 20:34 → 2ND 22:08
PROVIDERS: ADMIT Internal Medicine; ATTEND Hospitalist
DX: A41.52 Sepsis due to Pseudomonas (principal); N39.0 Urinary tract infection, site not specified; N20.0 Calculus of kidney; Z88.8 Allergy status to other drugs, medicaments and biological substances; Z16.24 Resistance to multiple antibiotics; Z11.52 Encounter for screening for COVID-19; Z79.899 Other long term (current) drug therapy
CPT/HCPCS: 36415; 71045; 71260; 74177; 80048; 80053; 81001; 83605; 84484; 85025; 85610; 85730; 87040; 87077; 87086; 87088; 87186; 87804; 87811; 93005; 96365; 96366; 99285; J1335; J1650; J2185; J7030; J7614; J7644; Q9967

== ENCOUNTER 2024-04-29 08:25 | Day surgery (SDC) | payer OTHER ==
[2024-04-16 14:59] LABS: Absolute Eosinophils 0.1 K/uL (0-0.5); Absolute Lymphocytes (CBC) 0.9 K/uL (0.7-4.9); Absolute Monocytes 0.7 K/uL (0.1-1.3); Absolute Neutrophil 8.9 K/uL (1.8-8.0); Basophils % 0.3 % (0-1.3); Eosinophils % 1.1 % (0-4.4); Hematocrit 40.5 % (39.6-49.0); Hemoglobin 13.4 g/dL (13.6-17.9); Lymphocytes % 8.5 % (15.3-44.8); MCH 31.7 pg (27.0-35.0); MCHC 33.1 g/dL (32.0-36.0); MCV 95.8 fL (80-100); MPV 8.2 fL (7.6-11.3); Monocytes % 6.8 % (3.3-12.3); Neutrophils % 83.3 % (41.7-73.7); Platelets 244 thou/uL (152-406); RBC Red Blood Cell Count 4.23 M/uL (4.33-5.43); Red Cell Distribution Width 15.1 % (12.1-15.2)
[2024-04-16 15:05] LABS: PT Prothrombin Time 11.5 SECONDS (9.5-12.5); Protime INR 1.05
[2024-04-16 15:11] LABS: Anion Gap 5.7 mEq/L (5.0-15.0); Potassium 3.7 mEq/L (3.5-5.1)
--- NOTE | 2024-04-29 08:56 | RAD REPORT ---
EXAM DESCRIPTION: RAD - Abdomen 1 View (KUB) - 04/29/2024 8:42 am CLINICAL HISTORY: Abdomen pain FINDINGS: The bowel gas pattern is unremarkable. Moderate amount of stool within the colon Multiple left renal calculi. Right ureteral stent. Calculus along the course of stent not visualized
[2024-04-29] MEDS ORDERED: CIPROFLOXACIN 400mg IV 0 MG/0 ML BAG IV ONE (09:06)
[2024-04-29] MEDS: Ringers Lactate 1,000 ML IV ONE (09:25)
[2024-04-29] MEDS: Gentamicin Inj 120 MG in NA CHLORIDE 0.9% 100 ML IV SCH (10:20)
[2024-04-29] MEDS ORDERED: FENTANYL CITR 100 MCG/2 ML ONE (13:37)
[2024-04-29] MEDS ORDERED: propofoL 200 MG/20 ML VIAL IV ONE (13:37)
[2024-04-29] MEDS ORDERED: LIDOCAINE 1% MPF 5 ML VIAL ONE (13:37)
[2024-04-29] MEDS ORDERED: ONDANSETRON 4 MG/2 ML VIAL ONE (13:37)
[2024-04-29] MEDS ORDERED: ROCURONIUM 50 MG/5 ML VIAL IV ONE (13:45)
[2024-04-29] MEDS ORDERED: SUCCINYLCHOLINE 20 MG/ML (10 ML) IV ONE (13:46)
[2024-04-29] MEDS ORDERED: SUGAMMADEX SODIUM 200 MG/2 ML VIAL IV ONE (13:46)
[2024-04-29] MEDS: CIPROFLOXACIN 400mg IV 400 MG/200 ML BAG IV SCH (13:59)
[2024-04-29] MEDS ORDERED: NS 0.9% VIAL 10 ML ONE (14:29)
[2024-04-29] MEDS ORDERED: HYDROCODONE/APAP 5/325 MG TAB ONE (16:06)
[2024-04-29] MEDS ORDERED: PHENAZOPYRIDINE 100MG TAB PO ONE (16:07)
[2024-04-29] MEDS: PHENAZOPYRIDINE 100MG TAB PO ONE (16:10)
[2024-04-29] MEDS: HYDROCODONE/APAP 5/325 MG TAB PO PRN (16:10)
[2024-04-29 17:38] VITALS: BP 105/68; TEMP 97.7; O2SAT 97
--- NOTE | 2024-04-29 20:46 | RAD REPORT ---
EXAM DESCRIPTION: RAD - Urethrocystogrphy Retrograde - 04/29/2024 3:13 pm CLINICAL HISTORY: RT STENT EXCHANGE COMPARISON: None available. FINDINGS: Eighteen Images were sent to PACS, documenting fluoroscopy use during image guided right u reteral stent exchange procedure. No radiologist was available for the procedure, nor will any image interpretation he provided. Please refer to the procedural report for additional details. Fluoroscopy time: 28 seconds. IMPRESSION: Documentation of fluoroscopy utilization as above.
--- NOTE | 2024-04-30 02:47 | OP ---
Surgeon: PENNY BRYSON Preoperative Diagnoses: 1.Right nephrolithiasis. 2.History of right associated with impacted right proximal ureteral calculus. 3.History of complicated urinary tract infection/sepsis with Pseudomonas. Postoperative Diagnoses: 1.Right nephrolithiasis. 2.History of complicated urinary tract infection with Pseudomonas. Principle Procedures: 1.Cystoscopy. 2.Right retrograde pyelography. 3.Right ureteroscopy with pyeloscopy and laser lithotripsy and stone basketing of kidney stones. 4.Right ureteral stent exchange. Indication For Procedure: Mr. 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 As a result, a stent was placed and he was scheduled to return for definitive management of the residual renal calculi and also to reassess the stricture disease for p ersistence requiring management. Unfortunately, in the interim, the patient had postoperative urinary retention and required a cathete r to be placed. Despite giving him cephalexin for antimicrobial prophylaxis associated with the cath eter in place and the presence of the ureteral stent, he developed a complicated infection with Pseud omonas resulting in sepsis and required hospitalization. When he completed that course of antimicrob ial therapy, he subsequently developed again fevers and chills and took an additional course of the c iprofloxacin antimicrobial therapy that had been originally prescribed on his emergency department vi sit. He subsequently developed SIRS associated with coming off that course of antimicrobial therapy, and was admitted again for additional IV antimicrobial therapy before being discharged with a course of ciprofloxacin because of persistence of the Pseudomonas infection. As a result, it is understood that the stent was likely colonized with the Pseudomonas and thus required extraction and exchange. He presents today for that management. Procedure In Detail: The patient was consented in the preoperative holding area before being transfe rred to the operative suite where general anesthesia was induced. He was given ciprofloxacin 400 mg IV and gentamicin IV antimicrobial prophylaxis, and pneumo boots were provided for DVT prophylaxis. He was placed in the lithotomy position, padded and secured to the table appropriately. His genitali a were prepped with Hibiclens and he was draped in standard fashion. The case was begun using a 22-F rench rigid cystoscope to traverse the urethra and into the bladder with ease. The bladder was decom pressed of fluid and urine and the stent was observed emanating from the right ureteral orifice. I g rasped the coil of the stent using an alligator grasper and delivered the tip to the meatus with the proximal coil remaining within the renal pelvis or proximal ureter as evidenced fluoroscopically. I then passed a Sensor wire via the stent successfully, coiling it in the putative collecting system, r emoving the stent over the wire and leaving the wire in place. I then back-loaded a dual-lumen ronnie ter over the safety wire into the mid distal ureter and performed a retrograde pyelogram. Right retrograde pyelography: Using a 70:30 mixture of Omnipaque and saline, contrast was injected via the second lumen of the dual -lumen catheter and did propagate up the mid into the proximal ureter before entering the renal pelvi s and calyces without significant pelvocaliectasis and no significant strictured disease obstruction noted. As a result, I passed a Bentson guidewire via the second lumen of the dual-lumen catheter coi ling it alongside the safety wire in the collecting system. I removed the dual-lumen catheter leavin g both wires in place and then passed a digital flexible ureteroscope over the Bentson guidewire into the upper pole calyx as observed fluoroscopically. I then used pressurized saline and surveyed each of the calyces of the right kidney from the upper pole calyces into the upper mid pole calyces and e ventually down into the lower pole calyces. I did not note any stone in any of the upper or mid pole calyces or even a lower pole posterior calyx until I navigated with the degree of difficulty into a lower pole anterior calyx, at which point, this significant residual stone burden was encountered. I utilized a 1.9-Samoan Zero Tip Nitinol basket to grasp and deliver at least 1 of the larger fragment s of stone into the upper pole posterior calyx and attempted to grasp the other stones, but they were not accessible due to the maximal manipulation of the ureteroscope failing to allow appropriate posi tioning of the basket in order to grasp and remove the stones to a more favorable location. So, I sw itched the basket for a 200 nm either laser fiber at power setting of 1 joule and 25 hertz and began to fragment the stones out of that lower pole anterior location and ultimately they bounced into the lower pole posterior location, which was a bit easier to target. I then continued to fragment the st ones in that location until the stone fragments were dust about the size of the tip of the laser fibe r. I then went up to the upper pole posterior calyx where I left the other larger fragment and edgar mandel fragmented this using the laser fiber at the power settings described above until most of the fr agments were the size of dust. I then surveyed through the calyces of the kidney and identified a re sidual fragment that was likely 2 or 3 mm in diameter and so I utilized the Zero Tip Nitinol basket t o grasp that and remove that from the collecting system intact. This was sent for chemical analysis. I then again loaded the dual-lumen catheter to place a Bentson guidewire and then passed the flexib le ureteroscope over the Bentson guidewire back into the collecting system and surveyed down into the lower pole anterior calyx where some residual stone dust was observable, all smaller than around 1 c m in diameter. I was able to grasp most of that dust with an additional passage of the Zero Tip Sonal nol basket, and deliver that dust via the meatus, also send for pathologic analysis. At this point, I then back-loaded the cystoscope over the indwelling safety wire and I passed a 6-Samoan by 24 cm do uble-J ureteral stent over the safety wire into the upper pole calyx with a coil observed fluoroscopi radha there. An additional coil was formed cystoscopically in his bladder, and then I decompressed h is bladder of fluid and urine, leaving the stent attached to its tether. I then placed an 18-Samoan Jose catheter via his urethra into his bladder with ease, and this was allowed to decompress. I the n secured the tether of the stent to the glans penis using Mastisol and Steri-Strips. The Jose cath eter was connected to a leg bag, and the patient was taken out of the lithotomy position. He was the n awakened from general anesthesia before being transferred to a stretcher, and then he was transferr ed to the recovery room in good condition. Complications: None. Discharge Disposition: He will be discharged with the right ureteral stent left on its tether, secur ed to the glans penis. That will be removed on Sunday, and he may require a dose of ciprofloxacin gi jennifer to him during that clinic visit if he has completed his home therapeutic regimen by then. His wi fe anticipates him finishing it on . Additionally, the urethral Jose catheter may be removed at home by the patient tomorrow morning at 7 a.m. Subsequent followup should be established to discuss the residual left nephrolithiasis and pos sible surgical management for that. 04/29/2024, KUB performed preoperatively revealed to my review of the imaging the presence of at leas t 2 dominant calculi foci within the left kidney estimated within the mid pole and lower pole calyces with a dominant focus measuring around 5 mm and the second most dominant focus measuring 5-6 mm. Ad ditional foci are barely perceptible and would not be amenable to ESWL. This stands a contradistinct ion to a stone protocol CT performed 02/07/2024, which revealed the presence of multiple calculi with a dominant focus measuring around 9 mm, the second focus measuring around 7 mm, and at least 2 other foci measuring around 4-5 mm, which are not clearly radiopaque on plain imaging. As a result, we wi ll likely require repeat ureteroscopic intervention at some point in the future for the left side bef ore we can plan definitive metabolic evaluation to prevent his recurrent stone formation potential. WR/MODL Voice ID: [id number] Report ID: [id number]
== END 2024-04-29 17:15 | disposition home or self-care (01) ==
LOC: OR 08:25
PROVIDERS: ATTEND Urology
PROC: 0T768DZ Dilation of Right Ureter with Intraluminal Device, Via Natural or Artificial Opening Endoscopic (ICD-10-PCS; 2024-04-29)
PROC: 0TC08ZZ Extirpation of Matter from Right Kidney, Via Natural or Artificial Opening Endoscopic (ICD-10-PCS; principal; 2024-04-29 10:30)
DX: N20.0 Calculus of kidney (principal); Z87.440 Personal history of urinary (tract) infections
CPT/HCPCS: 87088; 85025; 87086; 80048; 36415; 85610; 88300; 87077; 87186; 82360; 74018; 74450; 51610; 52356; A4216; J2704; J2001; J1580; J3010; J2405; J0744; J7120

== ENCOUNTER 2025-03-30 06:58 | Day surgery (SDC) | payer OTHER ==
[2025-03-27 16:32] LABS: Absolute Monocytes 0.5 K/uL (0.1-1.3); Absolute Neutrophil 4.1 K/uL (1.8-8.0); Basophils % 0.5 % (0-1.3); Eosinophils % 0.6 % (0-4.4); Hematocrit 42.6 % (39.6-49.0); Hemoglobin 14.8 g/dL (13.6-17.9); Lymphocytes % 17.8 % (15.3-44.8); MCH 32.1 pg (27.0-35.0); MCHC 34.8 g/dL (32.0-36.0); MCV 92.3 fL (80-100); MPV 8.4 fL (7.6-11.3); Monocytes % 9.6 % (3.3-12.3); Neutrophils % 71.5 % (41.7-73.7); Nucleated Red Blood Cells % 0.3 % (0-0); Platelets 180 thou/uL (152-406); RBC Red Blood Cell Count 4.61 M/uL (4.33-5.43); Red Cell Distribution Width 13.9 % (12.1-15.2)
[2025-03-30] MEDS: Ringers Lactate 1,000 ML IV ONE (07:55)
[2025-03-30] MEDS ORDERED: LIDOCAINE 1% MPF 5 ML VIAL ONE (08:00)
[2025-03-30] MEDS ORDERED: propofoL 200 MG/20 ML VIAL IV ONE (08:00)
[2025-03-30 10:11] VITALS: BP 120/62; TEMP 97.5
[2025-03-30 10:12] VITALS: O2SAT 99
--- NOTE | 2025-03-30 12:05 | EKG ---
Test Date: 2025-03-27 Test Time: 15:57:11 Drywall Application Supervisor: KERON MEASUREMENT RESULTS: Intervals: Rate: 83 NH: 140 QRSD: 96 QT: 360 QTc: 423 [place]: P: 65 NH: 140 QRS: 37 T: 61 INTERPRETIVE STATEMENTS: Normal sinus rhythm Normal ECG Compared to ECG 04/21/2024 19:45:08 Sinus tachycardia no longer present Atrial premature complex(es) no longer present Electronically Signed On 03-30-25 12:03:59 CDT by Tonny David
== END 2025-03-30 10:00 | disposition home or self-care (01) ==
LOC: OR 06:58
PROVIDERS: ATTEND Surgery
PROC: 0DBM8ZX Excision of Descending Colon, Via Natural or Artificial Opening Endoscopic, Diagnostic (ICD-10-PCS; 2025-03-30)
PROC: 0DBH8ZX Excision of Cecum, Via Natural or Artificial Opening Endoscopic, Diagnostic (ICD-10-PCS; principal; 2025-03-30 08:30)
DX: R19.4 Change in bowel habit (principal); R93.3 Abnormal findings on diagnostic imaging of other parts of digestive tract; K57.30 Diverticulosis of large intestine without perforation or abscess without bleeding; K64.4 Residual hemorrhoidal skin tags; K64.8 Other hemorrhoids; D12.0 Benign neoplasm of cecum; D12.4 Benign neoplasm of descending colon
CPT/HCPCS: 93005; 85025; 80048; 36415; 88305; 45384; J2704; J2003; J7120